=== PATIENT | female | born 1960 | race Caucasian/White ===

== ENCOUNTER 2023-10-10 12:16 | Emergency (ER) | payer BC, SELFPAY ==
[2023-10-10 12:19] VITALS: BP 108/83
[2023-10-10 12:51] LABS: % Basophils 0.6 % (0-2); % Eosinophils 0.3 % (0-6); % Immature Granulocytes 0.3 % (0-0.5); % Lymphocytes 15.9 % (20.5-51.1); % Monocytes 3.7 % (1.7-9.3); % Neutrophils 79.2 % (42.2-75.2); Absolute Lymphocytes 0.6 10^3/uL (1.2-3.4); Absolute Monocytes 0.1 10^3/uL (0.1-0.6); Absolute Neutrophils 2.8 10^3/uL (1.4-6.5); Hematocrit 23.2 % (37.0-47.0); Hemoglobin 7.4 g/dL (12.0-16.0); Mean Corp Hgb Conc. 31.9 g/dL (33.0-37.0); Mean Corpuscular Hgb 27.2 pg (27.0-31.0); Mean Corpuscular Volume 85.3 fL (81.0-99.0); Nucleated Red Blood Cells % 0 %; Red Blood Cell Count 2.72 10^6/uL (4.20-5.40); Red Cell Dist. Width 18.2 % (11.5-14.5); White Blood Cell Count 3.5 10^3/uL (4.8-10.8)
[2023-10-10 12:57] LABS: INR 1.26; PT 15.6 Sec (11.4-14.6)
[2023-10-10 12:58] LABS: APTT 30.9 Sec (23.4-35.0)
[2023-10-10 13:10] LABS: Platelet Count 50 10^3/uL (130-400)
[2023-10-10 13:14] LABS: ALT (SGPT) 13 U/L (0-35); AST (SGOT) 28 U/L (14-36); Albumin 2.8 g/dl (3.5-5.0); Alkaline Phosphatase 77 U/L (38-126); Blood Urea Nitrogen 15 mg/dl (7-17); Calcium 8.8 mg/dl (8.4-10.2); Carbon Dioxide 21 mmol/L (22-30); Chloride 104 mmol/L (98-107); Glucose 120 mg/dl (70-99); Potassium 3.9 mmol/L (3.5-5.1); Sodium 130 mmol/L (135-145); Total Bilirubin 1.4 mg/dl (0.2-1.3); Total Protein 6.2 g/dl (6.3-8.2); eGFR > 60.00
--- NOTE | 2023-10-10 15:34 | ED.GENMED ---
History of Present Illness
General
Chief Complaint: Abnormal Lab Value
Time Seen by Provider: 10/10/23 15:08
Travel History
Have you had any contact with someone who has COVID-19?: No
Do you have any symptoms of coronavirus? Fever > 100 degrees, chills, cough, shortness of breath, sore throat, loss of taste or smell, muscle aches, or headache?: No
History of Present Illness
History of Present Illness:
62-year-old female with history of hemochromatosis presents to the department for worsening fatigue, exertional dyspnea, and lethargy ongoing for the past several days. Patient has underlying hemochromatosis and follows outpatient with hematology.
States she has had the symptoms progressively worsening for about 7 months, has not required a blood transfusion as her hemoglobin is typically not dropped below 8.0 during this time. Denies any recent fevers or chills.
Review of Systems
Review of Systems
Allergies reviewed?: Yes
All Other Systems: ROS reviewed and negative except as documented in HPI and ROS
Phy Exam
Physical Exam
Physical Exam:
GEN: Generally pale, overall in no immediate distress
HEENT: Oral mucosa moist, no scleral icterus
Cardiac: Regular rate and rhythm, 3/6 systolic murmur
Lung: No respiratory distress, no tachypnea
MSK: No gross deformity or injuries
Skin: Good color, no pallor or jaundice, no rashes
Neuro: AO x3, moves all extremities freely
Psych: Calm, cooperative
Course
Orders/Labs/Results
Orders:
Orders
10/10/23 12:28
Type+Screen Urgent
Complete Blood Count/With Diff Urgent
Comprehensive Metabolic Panel Urgent
Ferritin Urgent
Comment: ADD ON
Iron Urgent
Comment: ADD ON
PT/INR [Prothrombin Time] Urgent
PTT Urgent
Total Iron Binding Urgent
Comment: ADD ON
10/10/23 15:35
Add On- LAB Urgent
Tests Added?: iron, TIBC, ferritin
10/10/23 16:16
Blood Bank Products [* Blood Bank Products] Urgent
Blood Bank Products: *Packed RBC Leuko(PRBC's)
Quantity: 1
Transfuse Today: Yes
Reason: Anemia
Abnormal Lab Results
10/10/23
12:28
WBC 3.5 L 10^3/uL
(4.8-10.8)
RBC 2.72 L 10^6/uL
(4.20-5.40)
Hgb 7.4 L g/dL
(12.0-16.0)
Hct 23.2 L %
(37.0-47.0)
MCHC 31.9 L g/dL
(33.0-37.0)
RDW 18.2 H %
(11.5-14.5)
Plt Count 50 L 10^3/uL
(130-400)
MPV 11.0 H fL
(7.4-10.4)
Absolute Lymphs (auto) 0.6 L 10^3/uL
(1.2-3.4)
Neutrophils % 79.2 H %
(42.2-75.2)
Lymphocytes % 15.9 L %
(20.5-51.1)
PT 15.6 H Sec
(11.4-14.6)
Sodium 130 L mmol/L
(135-145)
Carbon Dioxide 21 L mmol/L
(22-30)
Glucose 120 H mg/dl
(70-99)
Iron 31 L ug/dl
(37-170)
TIBC 223 L ug/dl
(265-497)
% Saturation 13 L %
(20-50)
Ferritin 394.0 H ng/ml
(11.1-264.0)
Total Bilirubin 1.4 H mg/dl
(0.2-1.3)
Total Protein 6.2 L g/dl
(6.3-8.2)
Albumin 2.8 L g/dl
(3.5-5.0)
Crossmatch IS Only See Detail
10/10/23 12:28
10/10/23 12:28
Vital Signs
Initial and Last Documented VS:
Initial Vital Signs
Temp Pulse Resp BP Pulse Ox
98.3 F 90 20 108/83 99
10/10/23 12:19 10/10/23 12:19 10/10/23 12:19 10/10/23 12:19 10/10/23 12:19
Last Documented Vital Signs
Temp Pulse Resp BP Pulse Ox
98.6 F 84 18 102/59 92
10/10/23 20:03 10/10/23 20:03 10/10/23 20:03 10/10/23 20:03 10/10/23 20:03
MDM/Problems Addressed
MDM/Problems Addressed:
62-year-old female presenting with symptoms of low hemoglobin including dyspnea on exertion and excessive fatigue. She has no evidence for active bleeding. Her hemoglobin 7 quite stable for the past 6 months according to the patient based on her
outpatient labs, 2 days ago hemoglobin as an outpatient was 7.0, today 7.4. She was given 1 unit of packed red blood cells, cannot discount the potential that her systolic murmur may be somewhat contributory to her exertional symptoms. I
recommended she follow-up with her defensive secondary coach to [place] to discuss any potential further workup of valvular disorder, she has a follow-up scheduled with hematology and oncology in 2 weeks to discuss further workup of her hemochromatosis.
Overall clinically stable, tolerated blood transfusion quite well
*Critical Care Note
Total Time (30-74mins, 75-104mins- exclusive of procedures): Not Applicable
ED Attending Note
-
Portions of this chart may have been created with voice recognition software.� Occasional wrong word or��sound alike� substitutions may have occurred due to the inherent limitations of voice recognition software.
Discharge Plan
Departure
Patient Disposition: Home (Routine Discharge)
Date of Disposition: 10/10/23
Time of Disposition: 20:08
Patient with high blood pressure during this ER visit?: No
Discharge Problem:
Iron deficiency anemia
Instructions: Anemia, Possibly From Low Iron, Adult ED
Referrals:
Kennedi Jackson MD [Active] -
Staci Gasca CRNP [Family Provider] -
Activity Restrictions/Additional Instructions:
Have your hemoglobin rechecked in approximately 2 to 3 days by your primary care physician or your oncologist
Interventions
Interventions:
*Risk Screen - Suicide Last Done: 10/10/23 14:14
*General Assessment Last Done: 10/10/23 14:14
*Neglect/Abuse Screening Last Done: 10/10/23 14:14
ED- Fall Risk Assessment Last Done: 10/10/23 14:14
*ED COVID-19 Vaccine History Last Done: 10/10/23 12:19
*Nursing Disposition Last Done: 10/10/23 20:27
Discharge Date and Time
Discharge Date/Time: 10/10/23 20:37
Print Language: MALAGASY
[2023-10-10 16:15] LABS: Iron 31 ug/dl (37-170)
[2023-10-10 16:25] LABS: Percent Saturation 13 % (20-50); Total Iron Binding Capacity 223 ug/dl (265-497)
[2023-10-10 17:46] VITALS: BP 106/54
[2023-10-10 18:05] VITALS: BP 95/55
[2023-10-10 19:00] VITALS: BP 102/52
[2023-10-10 20:00] VITALS: BP 102/59
[2023-10-10 20:03] VITALS: BP 102/59
== END 2023-10-10 20:37 | disposition home or self-care (01) ==
LOC: EMR 12:16
PROVIDERS: Emergency Medicine; EMERGENCY PHYSICIAN Emergency Medicine; FAMILY PHYSICIAN Nurse Practitioner Family
DX: D50.9 Iron deficiency anemia, unspecified (principal)
CPT/HCPCS: 99285; 80053; 82728; 83540; 83550; 85025; 85610; 85730; 86850; 86900; 86901; 86920; P9016

== ENCOUNTER 2023-11-16 16:47 | Inpatient (IN) | payer BC, SELFPAY ==
[2023-11-16 16:53] VITALS: BMI 21.5
[2023-11-16 16:57] VITALS: BP 126/70
--- NOTE | 2023-11-16 17:00 | PTCARENOTE ---
pt admitted as transfer from [facility]. admitted to room 2249. pt AAOX3. denies pain. ambulated from stretcher to bed. weight and vitals obtained. SR on telemetry heart rate in 80s. +murmur. +1 pitting edema in lower extremities. 96% on 2L nasal
cannula. pt reports sob with minimal exertion. lung sounds diminished, fine crackles in bilateral bases. hypoactive bowel sounds, poor appetite. voiding in bathroom. PA at bedside to examine. med list updated. see worklist for full nursing
assessment and interventions.
--- NOTE | 2023-11-16 17:55 | HPS.HSE ---
Addendum entered and electronically signed by Kaushik Waggoner MD 11/17/23 13:03:
I saw and examined the patient.
The FILAMENT CUTTER's note was reviewed and I agree with the note.
Comment:
I met with Mrs. Finney at the bedside. We briefly reviewed her TTE and the plan of care. I suspect she will require AVR/MVR (with her baseline anemia, I would favor biological prosthesis). She is getting her R/LHC tomorrow followed by RONY this week.
Will plan to optimize her with blood products prior to surgery and have some on standby. Tentative surgery date is Thursday with me.
Original Note:
Family Physician
-
Family Physician: WILNER Harding
Chief Complaint
-
fatigue/exertional dyspnea
History of Present Illness
Isaura Finney is a 63-year-old opalf-[id number], female with hypertension, hyperlipidemia, hemochromatosis, mitral prolapse (f/b Dr. Ruff) and AV john reentrant tachycardia who has been admitted to [facility] on
11/09/2023 with acute worsening of exertional dyspnea and fatigue. Patient states symptoms have been present since January 2023 and has been following with outpatient gastroenterology with workup inclusive of colonoscopy in March upper GI in June
of this year and capsule endoscopy in July of this year, with all negative results. Patient denies rectal bleeding, melena, hematochezia. Patient received 1 unit of packed red blood cells on 10/10/23 for hemoglobin of 7.4. Hemoglobin on
admission to [facility] was 6.7 and patient was hypotensive (90/62). Patient received a total of 4 units of packed red blood cells. White blood cell count was normal at 6.3 and patient was afebrile. CTA of chest on 11/08 reported no
evidence for pulmonary emboli. Thrombocytopenia with platelet count of 32,000 was followed up with head CT which was negative for infarct or hemorrhage. Initial troponin of 92 was consistent with demand ischemia. Initial blood cultures grew
gram-positive cocci in chains and patient was started on vancomycin 1.5G intravenous daily. A TTE was performed on 11/09 and reported EF of 65% with severe concentric LVH. Normal RV size and function. Dilated left atrium with myxomatous mitral
valve with posterior mitral valve leaflet prolapse and ruptured chordae of the anterior and posterior mitral valve leaflets. The anterior mitral valve leaflet was flail with reported evidence of vegetation. Moderate mitral regurgitation and aortic
insufficiency was noted. Ascending root measured 3.8 cm, sinotubular junction measured 3.1 cm, and ascending aorta measured 3.73 cm. On 11/10, patient underwent a left thoracentesis for 350 cc of fluid. Patient recounts a 30 pound weight loss since
last fall as she has been feeling poorly and has little appetite. Last dental examination and cleaning was in June 2023. Patient currently sitting in bed, comfortable and able to converse without dyspnea. Of note, patient did not receive
vancomycin dose on 11/15 due to random Vanco level of 28.4.
Medical History
Past Medical History
Past Medical History: Reports Arrhythmia (AVNRT s/p ablation), GERD, HTN, Hypercholesterolemia, Valvular Disease (mitral valve prolapse), Psychiatric (Anxiety) and Other (Normocytic anemia, thrombocytopenia, lactose (not gluten as prior documented
from OSH) intolerance)
Past Surgical History: Reports Other (Bilateral breast implant and subsequent removal, tubal ligation)
Social History
Tobacco: Non-smoker
Alcohol: Occasional
Drug: None
Personal:
Living: With Family
Employment: Retired
Family History
Family History: Not pertinent
Allergies / Home Medications
Allergies reflects when Allergies were last updated in [facility].
Home Medications with original date entered in [facility]
Allergy/Medication List:
see list
Review of Systems
-
Constitutional: Reports Weight Loss (30 pounds since 04/30)
EENT: Reports No Symptoms
Respiratory: Reports See HPI
Cardiac: Reports No Symptoms
Abdomen/GI: Reports Anorexia
: Reports No Symptoms
Skin: Reports No Symptoms
Neurological: Reports No Symptoms
Endocrine: Reports No Symptoms
Hematologic/Lymphatic: Reports See HPI
Psych: Reports No Symptoms
Physical Exam
Vital Signs
Vital Signs
Temp Pulse Resp BP Pulse Ox
98.4 F 84 18 126/70 96
11/16/23 17:02 11/16/23 17:15 11/16/23 17:02 11/16/23 16:57 11/16/23 17:36
Physical Exam
General: Well Developed, Well Nourished, Comfortable and Conversant
HEENT: NormoCephalic, Anicteric, Moist mucous membranes, Good Dentition, PERRLA, Sorgho Conjunctivae, No Ptosis, Ears Appear Normal, Neck Nontender and Oxygen (2L NC w/sat 96%)
Respiratory: Clear
Cardiac: S1/S2, Regular Rhythm and Murmur (IV/ harsh systolic murmur RSB 3rd ICS and LSB 5th ICS to axillae)
Breast: Deferred by me
GI: Soft, Non Tender, Non Distended, Normal Bowel Sounds and No Hepatosplenomegaly
Rectal: Deferred by Provider
Genito-urinary: Deferred by me
Musculoskeletal: No Clubbing, No Cyanosis, Edema, Left Lower Extremity (+1) and Edema, Right Lower Extremity (+1)
Skin: Warm and Dry
Neuro: AO x 3, No Motor Deficits, Nonfocal/grossly intact and No Sensory Deficits
Hematologic/Lymphatic: No Lymphadenopathy
Psych: Calm and Intact Judgment/Insight
Laboratory Results
-
11/15 labs from [facility] reviewed
WBC: 5.9; Hb 8.9; Plt 32
BMP: Na+ 136; K+3.6; Cl 105; CO2 23; BUN 11; Creat 0.76; Glucose 87
Vanc random-28.4
ALT-7
T. Bili 1.8
Data Reviewed
-
Diagnostic Radiology: Report Reviewed by me and Discussed with Physician
CT Scan: Report Reviewed by me and Discussed with Physician
Medical Tests (Nuc Med, Echo, EKG etc): Report Reviewed by me and Discussed with Physician
Lab Data: Labs Reviewed by me and Discussed with Physician
Impression/Plan
-
IMPRESSION: 63-year-old female with gram-positive cocci bacteremia and mitral valve endocarditis with anemia and thrombocytopenia
PLAN:
Repeat blood cultures in the morning
Trend hemoglobin (currently 8.9) and platelet count (currently 32 K)
Timing for transesophageal echocardiogram and cardiac catheterization to be determined
Consults to [facility] cardiology and infectious disease
[2023-11-16] MEDS: ADVAIR HFA 230/21 MCG INHALER 2 PUFF INH (19:06)
[2023-11-16 19:36] VITALS: BP 124/53
[2023-11-16] MEDS: LIPITOR PO (19:40)
[2023-11-16] MEDS: TYLENOL PO (21:15)
[2023-11-16 22:39] VITALS: BP 128/72
[2023-11-16 23:50] VITALS: BP 121/63
[2023-11-17] MEDS: TYLENOL PO ×7 (01:09→23:06)
[2023-11-17 04:51] VITALS: BP 122/67
[2023-11-17 05:24] LABS: % Basophils 0.3 % (0-2); % Immature Granulocytes 0.3 % (0-0.5); % Lymphocytes 9.8 % (20.5-51.1); % Monocytes 3.4 % (1.7-9.3); % Neutrophils 86.2 % (42.2-75.2); Absolute Lymphocytes 0.6 10^3/uL (1.2-3.4); Absolute Monocytes 0.2 10^3/uL (0.1-0.6); Absolute Neutrophils 5.6 10^3/uL (1.4-6.5); Hematocrit 22.9 % (37.0-47.0); Hemoglobin 7.5 g/dL (12.0-16.0); Mean Corp Hgb Conc. 32.8 g/dL (33.0-37.0); Mean Corpuscular Hgb 29.6 pg (27.0-31.0); Mean Corpuscular Volume 90.5 fL (81.0-99.0); Mean Platelet Volume 10.8 fL (7.4-10.4); Nucleated Red Blood Cells % 0 %; Platelet Count 31 10^3/uL (130-400); Red Blood Cell Count 2.53 10^6/uL (4.20-5.40); Red Cell Dist. Width 16.3 % (11.5-14.5); White Blood Cell Count 6.5 10^3/uL (4.8-10.8)
[2023-11-17 05:29] LABS: APTT 32.4 Sec (23.4-35.0); INR 1.24; PT 15.5 Sec (11.4-14.6)
[2023-11-17 05:31] LABS: Vancomycin Random 15.2 ug/ml
[2023-11-17 05:33] LABS: ALT (SGPT) 18 U/L (0-35); AST (SGOT) 42 U/L (14-36); Albumin 2.3 g/dl (3.5-5.0); Alkaline Phosphatase 81 U/L (38-126); Blood Urea Nitrogen 13 mg/dl (7-17); Calcium 8.4 mg/dl (8.4-10.2); Carbon Dioxide 25 mmol/L (22-30); Chloride 107 mmol/L (98-107); Estimated Creatinine Clearance 64 ml/min; Glucose 92 mg/dl (70-99); Magnesium 1.7 mg/dl (1.6-2.3); Potassium 3.7 mmol/L (3.5-5.1); Sodium 135 mmol/L (135-145); Total Bilirubin 1.8 mg/dl (0.2-1.3); Total Protein 5.7 g/dl (6.3-8.2); eGFR > 60.00
[2023-11-17 06:00] VITALS: BMI 21.2
[2023-11-17 07:11] VITALS: BP 114/65
[2023-11-17 07:15] LABS: Urine Albumin Trace (Neg - Trace); Urine Bilirubin Negative (Negative); Urine Character Clear (Clear); Urine Color Yellow; Urine Glucose Negative (Negative); Urine Ketone Negative (Negative); Urine Leukocyte Trace (Negative); Urine Nitrite Negative (Negative); Urine Occult Blood 4+ (Negative); Urine Urobilinogen Negative (Neg - 1+); Urine pH 6.5 (5.0-9.0)
[2023-11-17 07:35] LABS: Urine Squamous Cell 0-2 /LPF (Few)
[2023-11-17 07:39] LABS: Urine Bacteria Few (Negative); Urine Red Blood Cell 30-40 /HPF (0-2)
--- NOTE | 2023-11-17 07:45 | CON.CAR ---
Addendum entered and electronically signed by Mateo Krishna MD 11/17/23 13:25:
I saw and examined the patient.
The FENDER FINISHER or PA's note was reviewed and I agree with the note.
Comment: General: Well developed, well nourished in NAD.
Neck: Supple, no JVD, HJR, carotids +2 B/L, no bruits bilaterally.
Heart: Non displaced PMI, RRR, 2/6 apical systolic murmur, No S3, S4, no rubs.
Lungs: Clear to auscultation bilaterally, no wheeze, rhonchi, rubs bilaterally,
normal expiratory phase.
Extremities: No clubbing, cyanosis or edema bilaterally.
Neuro: Grossly nonfocal, awake, alert and oriented x3.
Isaura has a history of hemochromatosis, AVNRT status post ablation 2000, hypertension, hyper anemia, thrombocytopenia with extensive workup by oncology including bone marrow biopsy. She was admitted to [facility] with shortness of breath and
palpitations. Hemoglobin was 6.7 and platelets of 31,000. Cardiology was consulted for elevated troponin and echocardiogram revealed flail mitral valve leaflet and ruptured cord. She was transferred to [facility] to get mitral valve surgery. She
denies chest pain or shortness of breath at the present time.
Will plan on cardiac catheterization with Dr. Tristan on 11/17. Will plan on RONY on 11/18. Tentative plan for OR for mitral valve surgery on 11/[address] surgery input. Discussed with CT surgery, Dr. Tristan.
Original Note:
Consultation
Consultation Request
Date/Time Consultation Requested: 11/16/23 at 1740
Date/Time Consultation Performed: 11/17/23 at 0730
Requesting Provider: Dr. Waggoner
Performing Provider: Dr. Krishna
Reason for Consultation: Transfer from [facility] for mitral valve endocarditis
Medical History
-
History of Present Illness:
Patient was transferred from [facility] to 11/16/[address] team in the setting of suspected mitral valve endocarditis. Patient reports that she started with fatigue and INGRAM in 04/2023. Patient was found to be anemic and had GI
work-up including upper and lower endoscopy plus capsule endoscopy that were all unremarkable at [facility]. Patient then saw rheumatology and Heme/Onc for evaluations. Her rheumatoid factor and LICO labs were unremarkable and no definitive rheumatology
diagnosis was made. Patient saw Dr. Jackson with Heme/Onc and eventually had a bone marrow biopsy at [facility] 06/2023 that showed slight erythroid dysmaturation without evidence of clonal process, left shift or blasts. Overall BM biopsy suggested a
reactive process. Patient was then [facility] for anemia and was transfused, but referred back to her outpatient investigations manager for murmur. Patient went to [facility] on 11/09/23 for resting SOB and palpitations. In [facility] ER she was hypotensive
and Hgb was 6.[address] was negative for PE. Cardiology was consulted for elevated Troponin and an echo was checked that revealed flail MV leaflet and ruptured chords. There was consideration for cath and RONY at [facility], but due to
thrombocytopenia cases deferred. Blood cultures drawn 11/11/23 were positive for gram positive cocci in chains and repeat blood cultures were also positive 11/13/23. ID was consulted, but no consult seen in [facility] transfer records. Patient was transferred
to yesterday for evaluation by our CT surgical team and cardiology now consulted to follow along. Patient is adopted and does not know anything of her family medical history. Records at [facility] indicated h/o substance abuse, but patient says there is
no h/o drug use whatsoever.
PMH:
Anemia
h/o AVNRT, s/p ablation at 2000
Hemochromatosis
h/o HTN
Hyperlipidemia
Past Medical History
Past Medical History: Other (in HPI)
Past Surgical History: Gynecological (tubal ligation)
Social History
Tobacco: Non-Smoker
Alcohol: None
Drug: None (No h/o IV drug use)
Personal:
Living: With Family
Family History
Family History: Adopted
Allergies / Home Medications
Allergy/AdvReac Type Severity Reaction Status Date / Time
erythromycin base Allergy stomach Verified 11/16/23 18:26
cramping
lorazepam [From Ativan] Allergy hallucinati Verified 11/16/23 18:26
ons
oxycodone [From Percocet] Allergy Vomiting Verified 11/16/23 18:26
prochlorperazine Allergy wanted to Verified 11/16/23 18:26
[From Compazine] crawl out
of my skin
�Medication �Instructions �Recorded �Confirmed �Type
atenolol 25 mg tablet 25 mg PO DAILY Heart 11/16/23 11/16/23 History
Disease/Condition
atorvastatin 40 mg tablet 40 mg PO DAILY High Cholesterol 11/16/23 11/16/23 History
famotidine 40 mg tablet (Pepcid) 40 mg PO HS Gastrointestinal Issue 11/16/23 11/16/23 History
fluoxetine 20 mg capsule (Prozac) 20 mg PO DAILY Mental 11/16/23 11/16/23 History
Health/Anxiety
fluticasone 250 mcg-salmeterol 50 1 inh inhalation BID 11/16/23 11/16/23 History
mcg/dose blistr powdr for Lung/Breathing Issues
inhalation (Advair Diskus)
Review of Systems
-
History Source: Patient
All other systems: Negative unless noted
Physical Exam
Vital Signs
Temp Pulse Resp BP Pulse Ox
97.8 F 99 20 122/67 97
11/17/23 07:18 11/17/23 06:30 11/17/23 07:18 11/17/23 04:51 11/17/23 07:18
GEN: NAD. AAOx3
HEENT: EOMI, MMM
LUNGS: CTA B/L, no wheezes or rales
CV: Reg, S1/S2, 4/6 systolic murmur RSB
ABD: soft, BS+, NT, ND
EXT: No clubbing, cyanosis, lesions or edema B/L
NEURO: Gross non-focal
SKIN: Warm, dry and pink. No rash
Lab Results
11/17/23 04:53
11/17/23 04:53
Impression / Plan
-
PCP: Dr. Coleen Anderson
Cardiology: Dr. Ruff
Heme/Onc: Dr. Jackson
GI: Dr. Mcclendon at [facility]
Impression:
Transferred to for evaluation for mitral valve surgery 11/16/23
Admitted to [facility] with resting SOB symptoms, then new bacteremia and concern for mitral valve endocarditis 11/09/23
Suspected mitral valve endocarditis
Bacteremia, gram positive cocci in chains at [facility] 11/11/23
Anemia and thrombocytopenia, possibly hemolytic anemia in the setting of endocarditis
Elevated Troponin at [facility] managed as a nonischemic myocardial injury Troponin elevation
B/L pleural effusions
s/p thoracentesis at [facility] 11/11/23
h/o AVNRT, s/p ablation at 2000
Hemochromatosis
h/o HTN
Hyperlipidemia
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
least moderate, moderate aortic insufficiency with dilated aorta
Plan:
-Patient was transferred from [facility] to 11/16/[address] team in the setting of suspected mitral valve endocarditis. Patient reports that she started with fatigue and INGRAM in 04/2023. Patient was found to be anemic and had GI
work-up including upper and lower endoscopy plus capsule endoscopy that were all unremarkable at [facility]. Patient then saw rheumatology and Heme/Onc for evaluations. Her rheumatoid factor and LICO labs were unremarkable and no definitive rheumatology
diagnosis was made. Patient saw Dr. Jackson with Heme/Onc and eventually had a bone marrow biopsy at [facility] 06/2023 that showed slight erythroid dysmaturation without evidence of clonal process, left shift or blasts. Overall BM biopsy suggested a
reactive process. Patient was then seen in [facility] 10/10/[facility] for anemia and was transfused, but referred back to her outpatient investigations manager for murmur. Patient went to [facility] on 11/09/23 for resting SOB and palpitations. In [facility] ER she was hypotensive
and Hgb was 6.[address] was negative for PE. Cardiology was consulted for elevated Troponin and an echo was checked that revealed flail MV leaflet and ruptured chords. There was consideration for cath and RONY at [facility], but due to
thrombocytopenia cases deferred. Blood cultures drawn 11/11/23 were positive for gram positive cocci in chains and repeat blood cultures were also positive 11/13/23. ID was consulted, but no consult seen in [facility] transfer records. Patient was transferred
to yesterday for evaluation by our CT surgical team and cardiology now consulted to follow along. Patient is adopted and does not know anything of her family medical history. Records at [facility] indicated h/o substance abuse, but patient says there is
no h/o drug use whatsoever.
-Talked with patient at length to clarify history from her [facility] chart. Also talked with cardiology team at [facility] and plan for now is cath 11/18/23.
-Timing of RONY to be determined, but could be done on , 11/19/23.
-ID reportedly saw patient at [facility], but I do not have any of their notes. Vancomycin has been continued at . Also do not have final culture data beyond 'gram positive cocci in chains' despite blood cultures being drawn as far back as 11/11/23,
cultures apparently sent to [facility].
-Troponin T at [facility] was 92 and was managed as nonischemic myocardial injury Troponin elevation, but will proceed with cath as part of surgical evaluation.
-B/L pleural effusions and thoracentesis at [facility], no culture data sent.
-Check pro-BNP. There was consideration for possible acute HF at [facility] in the hospitalist note, but nothing noted in cardiology notes. Patient was not taking a diuretic prior to admission.
-ECG reviewed by me shows SR without ischemic changes, QTc 492. Recheck ECG in AM
-93 minutes spent reviewing records, talking with cardiology at [facility] and composing chart
--- NOTE | 2023-11-17 08:03 | PHA.VAN.IN ---
Assessment
- Assessment
Renal Function: Appears similar to baseline
Contacted [facility] inpatient pharmacy and received the following information about vancomycin regimen:
11/10 - patient initiated on Vanc 750mg Q12H
11/12 - patient had random level of 23 and using bayesian program, was adjusted to 1250mg Q24H
11/13 - patient was adjusted to Vanc 1500mg Q24H
11/15 - random level of 28.4 (drawn 11/15 08:09), dosing held
Half-life between level of 28.4 and level of 15.2 today = 23 H
Plan
- Plan
Maintenance Regimen: Continue dosing by level for now - give 1000mg x1 today
Monitorin/12 06
Pharmacokinetics Vancomycin I
- -
Patient Age: 63
Patient Sex: Female
Vancomycin Day #: 7 (continued from outside hospital)
Indication: Endocarditis
Requesting Provider: Nitesh Calderon
Pertinent Antimicrobial Allergies:
erythromycin - stomach cramping
Height / Weight:
Height 5 ft 2 in
Actual Weight 52.5 kg
- Vital Signs / Lab Results
Temp Pulse Resp BP Pulse Ox
97.8 F 99 20 122/67 97
11/17/23 07:18 11/17/23 06:30 11/17/23 07:18 11/17/23 04:51 11/17/23 07:18
Lab Results - Hematology
11/17/23
04:53
WBC 6.5
Lab Results - Chemistry
11/17/23
04:53
BUN 13
Creatinine 0.7
Estimated Creat Clear 64
Albumin 2.3 L
Lab Results - Urine
11/17/23
06:32
Urine Nitrite Negative
Ur Leukocyte Esterase Trace A
Urine WBC 3-5
Ur Squamous Epith Cells 0-2
Urine Bacteria Few A
[2023-11-17] MEDS: ADVAIR HFA 230/21 MCG INHALER INH ×2 (08:10→20:51)
[2023-11-17] MEDS: PROZAC 20 MG PO (08:31)
[2023-11-17 09:41] LABS: Glycohemoglobin (HgbA1c) 4.9 % (4.0-5.6)
[2023-11-17 10:16] LABS: Free T3 2.22 pg/ml (2.77-5.27); Total Thyroxine 7.91 ug/dl (5.5-11.0)
--- NOTE | 2023-11-17 11:14 | CON.ID ---
Consultation
-
Date/Time Consultation Requested: November 16, 2023 1745
Date/Time Consultation Performed: November 17, 2023 1115
Requesting Provider: WILNER Nino
Performing Provider: Dr. Amelia Bell
Reason for Consultation: Mitral valve endocarditis
Chief Complaint / Past History
Chief Complaint
SOB
History of Present Illness
History obtained from patient as well as review of outside medical records. I also communicated with MARLINE Jones at [facility]. She is a 63-year-old female with history of hemochromatosis, mitral valve prolapse who is transferred from [facility] yesterday for mitral valve endocarditis surgery evaluation. She reports she started feeling unwell approximately March/April 2023 with shortness of breath, fatigue, weakness, poor appetite. Patient was found to be anemic. GI workup
was negative. Eventually she also developed thrombocytopenia. She was referred to hematology oncology and underwent bone marrow biopsy which showed a reactive process. She was also evaluated by rheumatology. She has 30 pound unintentional weight
loss. She was admitted to [facility] on November 08 due to acute worsening shortness of breath at rest and palpitation. Her hemoglobin was 6.7, platelet 31, she was hypotensive and hypoxic. CAT scan showed bilateral pleural effusions. November 10
she underwent thoracentesis with negative culture. Several outside blood cultures positive for GPC patient has been on vancomycin. TTE showed mitral valve flail leaflet, ruptured chordae, vegetation, severe mitral regurgitation by report. RONY was
deferred due to severe thrombocytopenia. Patient reports no fevers outpatient. She did have intermittent rigors and chills. No history of IV drug use. She takes good care of her teeth. Last dental cleaning was in June 2023. Shortness of
breath test improved. Positive lower extremity edema. No nausea vomiting. No diarrhea.
Past History
Additional Past Medical History:
Mitral valve prolapse
Hypertension
Hemochromatosis
Dyslipidemia
History of AVNRT status post ablation 2000
IBS
Anxiety/depression
Tubal ligation
History of breast implant subsequently removed
Allergy History:
erythromycin base Allergy (Verified 11/16/23 18:26)
stomach cramping
lorazepam [From Ativan] Allergy (Verified 11/16/23 18:26)
hallucinations
oxycodone [From Percocet] Allergy (Verified 11/16/23 18:26)
Vomiting
prochlorperazine [From Compazine] Allergy (Verified 11/16/23 18:26)
wanted to crawl out of my skin
Medications Reviewed: Yes
Current Antibiotics:
Vancomycin
Social History
Tobacco: Non-Smoker
Alcohol: None
Drug: None
Personal:
Living: With Family
Family History
Family History: Adopted
Review of Systems
Review of Systems
General: Chills and Change in Appetite
HEENT: Negative Sinus Problems, Headache or Pharyngitis
Cardiovascular: Dyspnea and Edema
Respiratory: Dyspnea and Cough
Gasteroenterology: Other (No diarrhea); Negative Nausea or Vomiting
Genital / Urological: Negative Dysuria or Flank Pain
Endocrine: Weakness
Skin / Hair / Nails: Negative Rash
Neurological: Negative Headache or Dizziness
All systems: All other systems were reviewed and were negative
Vital Signs
Temp Pulse Resp BP Pulse Ox
97.8 F 99 20 122/67 97
11/17/23 07:18 11/17/23 06:30 11/17/23 07:18 11/17/23 04:51 11/17/23 07:18
Physical Exam
Physical Exam
Constitutional: No Acute Distress and Comfortable
Eyes: No Conjunctival Hemorrhage and Sclera Anicteric
Cardiovascular: Regular Rate, S1/S2 and Murmur
Pulmonary: Other (Decreased BS at bases)
Gastrointestinal: Non Tender, Non Distended and Normal Bowel Sounds
Genito-Urinary: Negative CVA Tenderness
Extremities: Edema (2+ bilateral lower extremities); Negative Erythema, Splinter Hemorrhage or Janeway Lesions
Musculoskeletal: Negative Joint Effusion or Spinal Tenderness
Neurological: AO x 3
Lab / Diagnostic Study Results
11/17/23 04:53
11/17/23 04:53
Abs Immat Gran (auto) 0.0 10^3/uL (0-0.05) 11/17/23 04:53
Absolute Neuts (auto) 5.6 10^3/uL (1.4-6.5) 11/17/23 04:53
Absolute Lymphs (auto) 0.6 10^3/uL (1.2-3.4) L 11/17/23 04:53
Absolute Monos (auto) 0.2 10^3/uL (0.1-0.6) 11/17/23 04:53
Absolute Basos (auto) 0.0 10^3/uL (0-0.2) 11/17/23 04:53
Immature Gran % 0.3 % (0-0.5) 11/17/23 04:53
Neutrophils % 86.2 % (42.2-75.2) H 11/17/23 04:53
Lymphocytes % 9.8 % (20.5-51.1) L 11/17/23 04:53
Monocytes % 3.4 % (1.7-9.3) 11/17/23 04:53
Eosinophils % 0.0 % (0-6) 11/17/23 04:53
Basophils % 0.3 % (0-2) 11/17/23 04:53
PT 15.5 Sec (11.4-14.6) H 11/17/23 04:53
INR 1.24 11/17/23 04:53
Urine WBC 3-5 /HPF (0-5) 11/17/23 06:32
Ur Squamous Epith Cells 0-2 /LPF (Few) 11/17/23 06:32
Microbiology Results
Micro:
11/17/23 04:53 Blood Culture - Pending
Blood/Venous
Assessment / Plan
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
# Abiotrophia defectiva bacteremia; 11/09 to 11/11 , 4 sets bcx's. 11/12 bcx's neg to date.
- Organism had been sent out to [facility] for susceptibility
# Acute anemia/thrombocytopenia due to MV IE
- Repeat bcx's in am
- Continue Vancomycin pending susceptibility.
- For eventual MV replacment.
[2023-11-17 11:15] VITALS: BP 126/58
[2023-11-17] MEDS: TENORMIN 25 MG PO (11:16)
[2023-11-17] MEDS: VANCOCIN 200 IV (11:17)
[2023-11-17] MEDS: KLOR-CON 40 MEQ PO (11:17)
--- NOTE | 2023-11-17 11:29 | CON.ONC ---
Impression
Impression
abiotrophia defectiva bacteremia with infective endocarditis
anemia
thrombocytopenia
Hemochromatosis, compound heterozygote
Plan
Plan
Anemia and thrombocytopenia are secondary to her infective endocarditis. She has had extensive hematologic workup including bone marrow biopsy over the past several months, which showed no underlying blood or bone marrow disorder other than known
hemochromatosis.
Management of infective endocarditis per CT surgery and infectious disease. Will transfuse blood and platelets as clinically indicated. Anticipate improvement in CBC once underlying infection improves.
Will check analysis panel, she may have concomitant valvular hemolysis, though treatment would not change.
Patient History
History of Present Illness
This is a 63yo female who I recently saw in the office for evaluation of progressive anemia. Extensive workup including bone marrow biopsy was nondiagnostic. She continued to have symptoms of worsening anemia, with chest discomfort and presented
to [place] last week. Evaluation included blood cultures, which were positive for gram-positive cocci (abiotrophia defectiva). Transthoracic echo on November 09 showed ejection fraction of 65% with severe concentric LVH. Left atrium is dilated with
myxomatous mitral valve with posterior mitral valve leaflet prolapse and ruptured chordae of the anterior and posterior mitral valve leaflets. The anterior mitral valve leaflet with flail with evidence of vegetation. Also noted was moderate mitral
regurgitation and aortic insufficiency. She was transferred to [place] for CT surgery evaluation. CBC today is noted for hemoglobin of 7.5 and platelet count of 31. White blood cell count of 6.5.This degree of anemia has been chronic, and
thrombocytopenia has been progressive, with platelet count of 39 on October 25. CMP is noted for total bilirubin of 1.8. Recent iron studies showed elevated ferritin with low saturation.
Past-Medical/Surgical History
Past medical history is noted for hypertension, asthma, depression, hyperlipidemia and anemia. She also has a history of hemochromatosis. Surgical history noted for tubal ligation, breast implants 1998 and implant removal in 2020 and cardiac
ablation in 2001.
Social history: She has never smoked tobacco, does not drink alcohol.
Family history: She is adopted
Patient Medication
�Medication �Instructions �Recorded �Confirmed �Last Taken �Type
atenolol 25 mg tablet 25 mg PO DAILY Heart 11/16/23 11/16/23 Unknown History
Disease/Condition
atorvastatin 40 mg tablet 40 mg PO DAILY High Cholesterol 11/16/23 11/16/23 11/16/23 History
famotidine 40 mg tablet (Pepcid) 40 mg PO HS Gastrointestinal Issue 11/16/23 11/16/23 Unknown History
fluoxetine 20 mg capsule (Prozac) 20 mg PO DAILY Mental 11/16/23 11/16/23 11/16/23 History
Health/Anxiety
fluticasone 250 mcg-salmeterol 50 1 inh inhalation BID 11/16/23 11/16/23 Unknown History
mcg/dose blistr powdr for Lung/Breathing Issues
inhalation (Advair Diskus)
Active Medications
Generic Name Dose Route Start Last Admin
Trade Name Freq PRN Reason Stop Dose Admin
Acetaminophen 650 mg 11/16/23 20:00 11/17/23 08:32
Acetaminophen 325 Mg Tablet PO 12/14/23 19:59 Not Given
Q4HWA BRITT
Atenolol 25 mg 11/17/23 10:00 11/17/23 11:16
Atenolol 25 Mg Tablet PO 12/15/23 09:59 25 mg
DAILY BRITT Administration
Atorvastatin Calcium 40 mg 11/16/23 18:00 11/16/23 19:40
Atorvastatin (Lipitor) 40 Mg Tablet PO 12/14/23 17:59 Not Given
QPM BRITT
Bisacodyl 10 mg 11/16/23 17:35
Bisacodyl 10 Mg Rectal Suppository RECTAL 12/14/23 17:34
[id number] PRN
constipation
Fluoxetine HCl 20 mg 11/17/23 08:00 11/17/23 08:31
Fluoxetine 20 Mg Capsule PO 12/15/23 07:59 20 mg
DAILY BRITT Administration
Vancomycin HCl 1 each/ Device 0 mls @ 0 mls/hr 11/17/23 10:00
IV
PER PROTOCOL BRITT
Protocol
As Directed
Polyethylene Glycol 17 grams 11/16/23 17:35
Polyethylene Glycol Powder 17 Grams Packet PO 12/14/23 17:34
DAILYPRN PRN
constipation
Fluticasone/Salmeterol 2 puff 11/16/23 20:00 11/17/23 08:10
Advair Hfa 230/21 Inhaler INH 12/14/23 19:59 Not Given
R BID BRITT
Protocol
Senna/Docusate Sodium 1 tablet 11/16/23 17:35
Docusate W/Senna (Aparna-Colace) Tablet PO 12/14/23 17:34
BIDPRN PRN
constipation
Sodium Chloride 0 flush 11/16/23 18:00
Sodium Chloride 0.9% (Flush) Syringe IV 12/14/23 17:59
PER PROTOCOL BRITT
Review of Systems
-
History Source: Patient
All Other Systems: Not reviewed unless documented
Physical Exam
-
General: Well Developed, Well Nourished, No Apparent Distress, Comfortable and Conversant
HEENT: Moist Mucous Membranes; Negative Jaundice
Musculoskeletal: No Clubbing, No Cyanosis and No Edema
Neurology: Non Focal and No Lateralizing Symptoms
Skin: Warm and Dry
Psych: Calm and Intact Judgement/Insight
Labs
Lab Results
WBC 6.5 10^3/uL (4.8-10.8) 11/17/23 04:53
RBC 2.53 10^6/uL (4.20-5.40) L 11/17/23 04:53
Hgb 7.5 g/dL (12.0-16.0) L 11/17/23 04:53
Hct 22.9 % (37.0-47.0) L 11/17/23 04:53
MCV 90.5 fL (81.0-99.0) 11/17/23 04:53
MCH 29.6 pg (27.0-31.0) 11/17/23 04:53
MCHC 32.8 g/dL (33.0-37.0) L 11/17/23 04:53
RDW 16.3 % (11.5-14.5) H 11/17/23 04:53
Plt Count 31 10^3/uL (130-400) L 11/17/23 04:53
MPV 10.8 fL (7.4-10.4) H 11/17/23 04:53
Abs Immat Gran (auto) 0.0 10^3/uL (0-0.05) 11/17/23 04:53
Absolute Neuts (auto) 5.6 10^3/uL (1.4-6.5) 11/17/23 04:53
Absolute Lymphs (auto) 0.6 10^3/uL (1.2-3.4) L 11/17/23 04:53
Absolute Monos (auto) 0.2 10^3/uL (0.1-0.6) 11/17/23 04:53
Absolute Eos (auto) 0.0 10^3/uL (0-0.7) 11/17/23 04:53
Absolute Basos (auto) 0.0 10^3/uL (0-0.2) 11/17/23 04:53
Immature Gran % 0.3 % (0-0.5) 11/17/23 04:53
Neutrophils % 86.2 % (42.2-75.2) H 11/17/23 04:53
Lymphocytes % 9.8 % (20.5-51.1) L 11/17/23 04:53
Monocytes % 3.4 % (1.7-9.3) 11/17/23 04:53
Eosinophils % 0.0 % (0-6) 11/17/23 04:53
Basophils % 0.3 % (0-2) 11/17/23 04:53
Creatinine 0.7 mg/dL (0.6-1.0) 11/17/23 04:53
Vital Signs
Vital Signs
Temp Pulse Resp BP Pulse Ox
97.8 F 92 20 126/58 97
11/17/23 07:18 11/17/23 11:16 11/17/23 07:18 11/17/23 11:16 11/17/23 07:18
[2023-11-17 12:18] LABS: NT-proBNP 10200 pg/ml
[2023-11-17 12:19] LABS: Hepatitis C Antibody Negative (Negative)
[2023-11-17] MEDS: LASIX 40 MG IV (13:13)
[2023-11-17 14:39] VITALS: BMI 21.2
--- NOTE | 2023-11-17 15:43 | CM ---
CM following for DC planning needs.
Met w/ patient, dtr. and granddtr. at bedside to complete initial assessment.
Pt. resides w/ spouse in a private, multi level home w/ 1 DASHA. Functionally, patient is indep. at baseline w/ ADLs, mobility without the use of any assisted device.
Pt. has Rx plan and uses [facility] in [place] for prescription needs.
Pt. anticipates CT Surg. at end of week.
Informed that I will be back later to review pre-op teaching.
Anticipate CT Surgery this week with DC to home w/ CT Transitional Care RN once medically stable.
CM to follow.
[2023-11-17 15:49] VITALS: BP 96/49
[2023-11-17] MEDS: LIPITOR 40 MG PO (17:49)
[2023-11-17 19:54] VITALS: BP 105/65
[2023-11-17 22:40] VITALS: BP 116/64
[2023-11-18] VITALS (30 sets, daily range): BP systolic 98–120; BP diastolic 53–73; BMI 20.9
--- NOTE | 2023-11-18 01:09 | W.PN.CT ---
Today's Communication / Plan
-
Plan:
-Cont. medical optimization/preop evaluation
-For R/L hearth cath today, 11/17 (will give 2 {5 pks} plts prior)
-H/h 6.8/20.4 will transfuse 2units today
-For eventual RONY prior to OR
-Blood transfusion as warranted
-F/u blood cultures
-Cont. abx per ID, currently on Vancomycin
-Appreciate consultants input
-Tentatively for MVR +/- AVR/ LAAE by Dr. Waggoner on Thursday, 11/19
Assessment / Plan
-
Assessment:
-MV endocarditis with severe MR (Abiotrophia defectiva bacteremia from blood cultures 11/09- 11/11; negative cultures to date)
-Anemia
-Thrombocytopenia
-LVEF 65%
-Hypertension
-Hemochromatosis
-Dyslipidemia
-History of AVNRT S/P ablation 2000
-GERD
-Osteopenia
-IBS
-Lactose intolerance
-Anxiety/depression
-B/L LE 2+ edema
-B/L pleural effusion S/P L thoracentesis 11/11/23 (cultures negative)
-S/P breast implant with subsequent removal (2020)
-S/P bone marrow biopsy (unrevealing)
-S/P Tubal ligation
Discussed patient care with: Cardiology, Nursing, Respiratory Therapy, Pharmacy and Care Team
Subjective
-
Date of Service: November 18, 2023
No issues overnight. Denies CP/SOB
Objective Data
-
PT 15.5 Sec (11.4-14.6) H 11/17/23 04:53
INR 1.24 11/17/23 04:53
APTT 32.4 Sec (23.4-35.0) 06/11/24 04:53
Vital Signs
Vital Signs
Temp Pulse Resp BP Pulse Ox
98.4 F 68 17 116/64 98
11/17/23 22:56 11/17/23 23:15 11/17/23 22:56 11/17/23 22:40 11/17/23 22:56
CT Intake/Output/Weight
11/17/23 11/17/23 11/18/23
06:59 18:59 06:59
Intake Total 1000 / 1000
Output Total 250 / 250 2250 / 2250
Balance -250 / -250 -1250 / -1250
SaO2: 98 (2L)
Physical Exam
-
General: Awake, Oriented and AOx3
Cardiovascular: Regular rate & rhythm and Murmur (4/6 systolic)
Respiratory: Rhonchi (at right base) and Decreased Breath Sounds
Sternum: Stable
Incision: Clean, Dry, Intact and Dressing Intact
Extremities: Edema +2
Data Reviewed
-
Lab Results: Results Reviewed
Medications: Active Meds Reviewed
Chest X-Ray: Report Reviewed and Image Reviewed
ECG: Report Reviewed and Image Reviewed
[2023-11-18] MEDS: TYLENOL PO ×5 (03:45→19:54)
--- NOTE | 2023-11-18 05:05 | PTCARENOTE ---
2 units platelets transfused as ordered. Vital signs stable. Pt ambulatory to bathroom as needed. Pt remains on 2 LO2 NC, tachypneic/ INGRAM. Dry cough. PT refusing Tylenol/ Robitussin as ordered. Pt kept NPO for scheduled cardiac cath this am. No
other changes in assessment noted at this time. Will continue to monitor.
[2023-11-18 06:00] LABS: Mean Corp Hgb Conc. 33.3 g/dL (33.0-37.0); Mean Corpuscular Hgb 30.4 pg (27.0-31.0); Mean Corpuscular Volume 91.1 fL (81.0-99.0); Mean Platelet Volume 10.5 fL (7.4-10.4); Red Blood Cell Count 2.24 10^6/uL (4.20-5.40); Red Cell Dist. Width 16.2 % (11.5-14.5); Reticulocyte Count 2.6 % (0.4-2.8); White Blood Cell Count 7.8 10^3/uL (4.8-10.8)
[2023-11-18 06:13] LABS: Hemoglobin 6.8 g/dL (12.0-16.0)
[2023-11-18 06:14] LABS: Hematocrit 20.4 % (37.0-47.0); Platelet Count 60 10^3/uL (130-400)
[2023-11-18 06:23] LABS: Vancomycin Random 16.7 ug/ml
[2023-11-18 06:24] LABS: Blood Urea Nitrogen 14 mg/dl (7-17); Calcium 8.1 mg/dl (8.4-10.2); Carbon Dioxide 28 mmol/L (22-30); Chloride 101 mmol/L (98-107); Estimated Creatinine Clearance 56 ml/min; Glucose 92 mg/dl (70-99); LDH 403 U/L (120-246); Magnesium 1.6 mg/dl (1.6-2.3); Potassium 3.8 mmol/L (3.5-5.1); Sodium 135 mmol/L (135-145); eGFR > 60.00
--- NOTE | 2023-11-18 06:29 | PTCARENOTE ---
AM lab work reviewed with Bernardo Cornelius cardiac PA. Order obtained for 2 units RBC's. Pt denies any complaints. Will continue to monitor.
[2023-11-18] MEDS: ADVAIR HFA 230/21 MCG INHALER INH ×2 (08:11→19:33)
--- NOTE | 2023-11-18 08:31 | PHA.VAN.FU ---
Vancomycin Assessment / Plan
- Assessment
Renal Function: Stable
WBC's are: WNL
In the past 24 hrs, patient has been: Afebrile
- Assessment - Therapeutic Drug Monitoring
Random Level: 16.7 - drawn ~18.5H after previous dose of 1000mg
- Dosing Plan
Dosing by Level: Re-dose today (Vanc 750mg - trial of reduced dosing)
- Monitoring Plan
Random Level: 11/18 06
- Follow Up
Pharmacy will continue to follow.
Vancomycin Follow UP
- -
Patient Age: 63
Patient Sex: Female
Vancomycin Day #: 8 (continued from outside hospital)
Indication: Endocarditis
Requesting Provider: Nitesh Calderon / Dr. Bell
Pertinent Antimicrobial Allergies:
erythromycin - stomach cramping
Height / Weight:
Height 5 ft 2 in
Actual Weight 51.9 kg
- Vital Signs / Lab Results
Temp Pulse Resp BP Pulse Ox
97.6 F 83 20 114/61 97
11/18/23 07:15 11/18/23 07:45 11/18/23 07:15 11/18/23 07:18 11/18/23 07:18
Lab Results - Hematology
11/17/23 11/18/23
04:53 05:46
WBC 6.5 7.8
Lab Results - Chemistry
11/17/23 11/18/23
04:53 05:46
BUN 13 14
Creatinine 0.7 0.8
Estimated Creat Clear 64 56
Albumin 2.3 L
Microbiology Results
11/17/23 04:53 Blood Culture - Preliminary
Blood/Venous No Growth in 24 hours- Final report to follow
Therapeutic Drug Monitoring
Random Vancomycin 16.7 ug/ml 11/18/23 05:46
--- NOTE | 2023-11-18 08:59 | ITS.CL.CATH ---
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
Cardiac Catheterization
Procedure Report:
RIGHT AND LEFT HEART CATHETERIZATION
Date of Procedure: November 18, 2023
Primary Care Physician: WILNER Cuba
Primary Skiagrapher: Dr. Cooper Daniels
Procedures performed:
1: Coronary angiography
2: Left ventricular hemodynamic assessment
3: Right heart catheterization
INDICATION: The patient is a 63-year-old woman who is referred for diagnostic right and left heart cath in preparation for double valve surgery in the setting of endocarditis complicated by pancytopenia. She received platelets overnight and is
currently being transfused with a unit of blood for hemoglobin this morning of 6.8 g/dL. She is unable to lay flat and the procedure was done with her on a wedge in the [employer] Worker.
ACCESS: The patient was prepped and draped in usual sterile fashion. A 5 [place] sheath was placed in the right radial artery using the Seldinger over the wire technique. A 5 [place] sheath was then placed in the right brachial vein using the same
technique.
HEMODYNAMIC FINDINGS (mmHg):
Resting
RA(a,v,m): 19, 17, 16
RV(s/d,EDP): 61/15, 18
PA(s/d/m): 61/30, 47
PCWP(a,v,m): 30, 58, 37
POST NTG
PA(s/d/m): 45/23, 34
PCWP(a,v,m): 29, 31, 27
LV(s/d,EDP): 125/12, 20
Ao(s/d,m): 125/72, 96
Oxygen Saturations (mg/dl):
PA: 57% on 4 L of oxygen by nasal cannula
LV: 91% on 4 L oxygen by nasal cannula
Cardiac Output/Index (l/min / l/min/m2):
Estimated Fifi Method: 4.6 / 3.0
VALVE HEMODYNAMICS:
No significant aortic or mitral valve stenosis.
ANGIOGRAPHIC FINDINGS:
Single-plane Left Ventriculography in CARPIO Projection: Not done.
Coronary Angiography:
Dominance: Right
Left Main: Large-caliber, widely patent.
Left Anterior Descending: The left anterior descending artery is a relatively large caliber vessel that is widely patent with only mild luminal irregularities. There is 1 major diagonal branch that also has mild ostial disease with normal distal
flow.
Left Circumflex: The left circumflex is a medium caliber nondominant system that gives rise to 1 major branching obtuse marginal branch that is widely patent with normal flow.
Right Coronary: The right coronary artery is a very large caliber dominant vessel that gives rise to a small caliber posterior descending artery and 2 very large caliber posterior left ventricular branches. There is catheter dampening with a 80%
smooth ostial coronary stenosis. The distal vessels are widely patent.
Fluoroscopy Time (min): 5.7
Radiation Dose (mGy): 271
DAP (Gy.cm2): 17
Closure device: None. A TR band was applied for hemostasis at the right wrist. The brachial vein groin sheath will be pulled with manual pressure for hemostasis.
Complications: None.
ASSESSMENT:
1: Single-vessel obstructive coronary artery disease with ostial right stenosis. The distal vessel is an excellent surgical target.
2: Moderate to severely elevated pulmonary pressures with a very large V wave that dramatically responds to intravenous nitroglycerin.
CONCLUSIONS and RECOMMENDATIONS:
1: Proceed with planned valvular surgery along with single-vessel bypass. Case discussed with Dr. Supa Waggoner.
Chase Tristan M.D.
Copy to: Staci DARBY
[2023-11-18] MEDS: VANCOCIN 150 IV (10:38)
[2023-11-18] MEDS: PROZAC 20 MG PO (11:02)
[2023-11-18] MEDS: TENORMIN 25 MG PO (11:02)
[2023-11-18] MEDS: BUMEX 50 IV (11:28)
--- NOTE | 2023-11-18 12:29 | CM ---
CM following for DC planning needs.
Met w/ patient at bedside. She is anticipating CT Surgery this week.
Reviewed pre and post op routines.
Cardiac Surgery booklet provided.
Discussed post op MD appointments, Cardiac Rehab and visit from CT Transitional Care RN.
Reviewed post op restrictions to include lifting, driving, flying and sternal precautions.
Plan for CT Surgery.
Goal for DC is for home w/ CT Transitional Care RN + ? IV infusion
CM to follow.
--- NOTE | 2023-11-18 13:46 | W.PN.ID1 ---
Date of Service
Date of Service: November 18, 2023
Today's Communication
Continue Vancomycin.
Assessment / Plan
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
# Abiotrophia defectiva bacteremia; 11/09 to 11/11 , 4 sets bcx's. 11/12 bcx's neg to date.
- Organism had been sent out to [facility] for susceptibility
# Acute anemia/thrombocytopenia due to MV IE
- Repeat bcx's neg to date
- Continue Vancomycin pending susceptibility.
- For eventual MV replacement.
#Additional Past Medical History:
Mitral valve prolapse
Hypertension
Hemochromatosis
Dyslipidemia
History of AVNRT status post ablation 2000
IBS
Anxiety/depression
Tubal ligation
History of breast implant subsequently removed
Chief Complaint
-: Other (endocarditis)
Subjective / Review of Systems
No new complaints.
Vital Signs / Physical Exam
Vital Signs
Vital Signs
Temp Pulse Resp BP Pulse Ox
98.0 F 63 16 100/55 97
11/18/23 12:15 11/18/23 13:15 11/18/23 12:15 11/18/23 13:00 11/18/23 13:15
Physical Exam
Constitutional: No Acute Distress
Cardiovascular: Regular Rate and S1/S2
Pulmonary: Clear (anteriorly)
Gastrointestinal: Soft, Non Tender and Non Distended
Extremities: Edema
Objective Data
Lab Data
Lab Results
11/18/23 05:46
PT 15.5 Sec (11.4-14.6) H 11/17/23 04:53
INR 1.24 11/17/23 04:53
APTT 32.4 Sec (23.4-35.0) 11/17/23 04:53
Estimated Creat Clear 56 ml/min 11/18/23 05:46
Total Bilirubin 1.8 mg/dl (0.2-1.3) H 11/17/23 04:53
AST 42 U/L (14-36) H 11/17/23 04:53
ALT 18 U/L (0-35) 11/17/23 04:53
Alkaline Phosphatase 81 U/L (38-126) 11/17/23 04:53
Most recent labs reviewed.
Micro Results:
11/18/23 05:46 Blood Culture - Pending
Blood/Venous
11/17/23 04:53 Blood Culture - Preliminary
Blood/Venous No Growth in 24 hours- Final report to follow
11/17/23 CXR: Mild to moderate CHF with small bilateral pleural effusions.
[2023-11-18] MEDS: LIPITOR 40 MG PO (16:00)
[2023-11-18 18:09] LABS: Hematocrit 32.4 % (37.0-47.0); Hemoglobin 11.3 g/dL (12.0-16.0); Mean Corp Hgb Conc. 34.9 g/dL (33.0-37.0); Mean Corpuscular Hgb 29.9 pg (27.0-31.0); Mean Corpuscular Volume 85.7 fL (81.0-99.0); Mean Platelet Volume 10.2 fL (7.4-10.4); Platelet Count 66 10^3/uL (130-400); Red Blood Cell Count 3.78 10^6/uL (4.20-5.40); Red Cell Dist. Width 15.9 % (11.5-14.5); White Blood Cell Count 6.9 10^3/uL (4.8-10.8)
[2023-11-19] VITALS (9 sets, daily range): BP systolic 90–114; BP diastolic 50–67; BMI 19.2
[2023-11-19] MEDS: TYLENOL PO ×6 (03:59→21:13)
[2023-11-19 05:02] LABS: Hematocrit 28.3 % (37.0-47.0); Hemoglobin 9.9 g/dL (12.0-16.0); Mean Corpuscular Hgb 29.6 pg (27.0-31.0); Mean Corpuscular Volume 84.7 fL (81.0-99.0); Mean Platelet Volume 9.8 fL (7.4-10.4); Platelet Count 65 10^3/uL (130-400); Red Blood Cell Count 3.34 10^6/uL (4.20-5.40); Red Cell Dist. Width 15.8 % (11.5-14.5); White Blood Cell Count 5.8 10^3/uL (4.8-10.8)
[2023-11-19 05:17] LABS: Vancomycin Random 18.7 ug/ml
[2023-11-19 05:30] LABS: Blood Urea Nitrogen 19 mg/dl (7-17); Calcium 8.7 mg/dl (8.4-10.2); Carbon Dioxide 34 mmol/L (22-30); Chloride 94 mmol/L (98-107); Estimated Creatinine Clearance 47 ml/min; Glucose 92 mg/dl (70-99); Potassium 3.2 mmol/L (3.5-5.1); Sodium 134 mmol/L (135-145); eGFR > 60.00
--- NOTE | 2023-11-19 06:30 | PTCARENOTE ---
Patient feeling better. No coughing or shortness of breath, oxygen at 2 liters NC. Trace pedal edema, lungs CTA. SR on telemetry, call garcia in reach
--- NOTE | 2023-11-19 07:22 | W.PN.CT ---
Today's Communication / Plan
-
-no issues overnight
-diuresed well with Bumex drip 11/17- UO 1200/5525 in 05/31 hrs. Wt is down 10 lbs today
-s/p 2 platelets and 2 pRBCs on 11/17. Hg 9.9 and platelets 65K today
-K 3.2 - gave 40 po KCL
-F/u blood cultures
-Cont. abx per ID, currently on Vancomycin
-Appreciate consultants input
-Tentatively for MVR +/- AVR/ LAAE by Dr. Waggoner on Thursday, 11/19
Assessment / Plan
-
Assessment:
-MV endocarditis with severe MR (Abiotrophia defectiva bacteremia from blood cultures 11/09- 11/11; negative cultures to date)
-Anemia
-Thrombocytopenia
-LVEF 65%
-Hypertension
-Hemochromatosis
-Dyslipidemia
-History of AVNRT S/P ablation 2000
-GERD
-Osteopenia
-IBS
-Lactose intolerance
-Anxiety/depression
-B/L LE 2+ edema
-B/L pleural effusion S/P L thoracentesis 11/11/23 (cultures negative)
-S/P breast implant with subsequent removal (2020)
-S/P bone marrow biopsy (unrevealing)
-S/P Tubal ligation
Discussed patient care with: Nursing and Care Team
Subjective
-
Date of Service: November 19, 2023
Objective Data
-
Lab Results
11/19/23 04:50
11/19/23 04:50
PT 15.5 Sec (11.4-14.6) H 11/17/23 04:53
INR 1.24 11/17/23 04:53
APTT 32.4 Sec (23.4-35.0) 11/17/23 04:53
Vital Signs
Vital Signs
Temp Pulse Resp BP Pulse Ox
98.6 F 63 18 102/56 96
11/19/23 07:16 11/19/23 04:45 11/19/23 07:16 11/19/23 04:29 11/19/23 07:16
CT Intake/Output/Weight
11/18/23 11/19/23 11/19/23
18:59 06:59 18:59
Intake Total 1792 / 1792
Output Total 4325 / 5525 1200 / 5525
Balance -2533 / -3733 -1200 / -3733
SaO2: 96
Physical Exam
-
General: Awake, Oriented and AOx3
Cardiovascular: Regular rate & rhythm and Murmur (4/6 systolic)
Respiratory: Rhonchi (at right base) and Decreased Breath Sounds
Sternum: Stable
Incision: Clean, Dry, Intact and Dressing Intact
Extremities: Edema +2
Data Reviewed
-
Lab Results: Results Reviewed
Medications: Active Meds Reviewed
Chest X-Ray: Report Reviewed and Image Reviewed
ECG: Report Reviewed and Image Reviewed
[2023-11-19] MEDS: ADVAIR HFA 230/21 MCG INHALER INH (07:48)
--- NOTE | 2023-11-19 08:48 | PTCARENOTE ---
Pt not feeling well, unable to take am meds
[2023-11-19] MEDS: TENORMIN 25 MG PO (09:03)
[2023-11-19] MEDS: KCL 40 MEQ PO ×2 (09:05→12:54)
[2023-11-19] MEDS: PROZAC 20 MG PO (09:05)
[2023-11-19] MEDS: BUMEX IV (09:05)
--- NOTE | 2023-11-19 09:24 | W.PN.CARDCBS ---
Addendum entered and electronically signed by Boaz Shane MD 11/19/23 11:34:
I saw and examined the patient.
The Military Equipment Specialist's note was reviewed and I agree with the note.
Comment:
GEN: No distress, awake, cachectic
HEENT: supple, anicteric, mmm
LUNGS: CTA, no wheezes/rales
CV: Reg, S1/S2, 3/6 syst apex, S3+
ABD: soft, BS+, NT/ND
EXT: No edema
NEURO: Gross non-focal
SKIN: No rash
plan:
RONY with severe mitral regurgitation, moderate aortic regurgitation and moderate to severe tricuspid regurgitation. There is also a collection of possible infection/inflammation/abscess/thrombus in the left atrial appendage area. LVEF is preserved.
Continue broad-spectrum antibiotics. With continued positive blood cultures the tentative plan is to delay surgery until next week. We will hope to clear her cultures before the operating room.
Case discussed with CT surgery. Will need to consider adding IV heparin with left atrial appendage finding.
Continue diuresis.
Original Note:
Today's Communication / Plan
-
RONY today
Impression / Plan
-
PCP: Dr. Coleen Anderson
Cardiology: Dr. Ruff
Heme/Onc: Dr. Jackson
GI: Dr. Mcclendon at [facility]
Impression:
Transferred to for evaluation for mitral valve surgery 11/16/23
Admitted to [facility] with resting SOB symptoms, then new bacteremia and concern for mitral valve endocarditis 11/09/23
Suspected mitral valve endocarditis
Moderate aortic insufficiency
Abiotrophia defectiva bacteremia seen initially at [facility] starting with cultures from 11/11/23
Anemia and thrombocytopenia in the setting of endocarditis
s/p 2 units PRBCs 11/18/23
s/p 2 sets platelets 11/18/23
Elevated Troponin at [facility] managed as a nonischemic myocardial injury Troponin elevation
CAD with smooth 80% ostial RCA lesion by cath 11/18/23
Acute HFpEF
B/L pleural effusions
s/p thoracentesis at [facility] 11/11/23
h/o AVNRT, s/p ablation at 2000
Hemochromatosis
h/o HTN
Hyperlipidemia
Hypokalemia
Elevated TSH with normal free T4
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
least moderate, moderate aortic insufficiency with dilated aorta
Plan:
-Patient was sent to 11/16/23 for evaluation for MV endocarditis. CT surgery has been following the patient and plan is for RONY on 11/19/23 and pending outcome surgery with AVR,MVR and CABG this admission.
-RONY 11/19/23 to better evaluate MR and moderate aortic insufficiency. TTE from [facility] uploaded to system.
-Patient with ostial RCA lesion by cath 11/18/23. Of note patient had an elevated Troponin T at [facility] prior to transfer, level was 92. This was initially managed as a nonischemic myocardial injury Troponin elevation, but perhaps should be managed as a
NSTEMI and consider adding DAPT. Although no chest pain.
-PCWP was 37 by [facility] 11/18/23. Bumex gtt ordered 11/18/23 and then transitioned to Bumex 1 mg IV x1 on 11/19/23. Weight is down 10 lbs as of 11/19/23.
-Talked with patient at length to clarify history from her [facility] chart. She says there is no h/o substance use.
-Anemia previously worked up at [facility] including unremarkable upper, lower and capsule endoscopies in 04/2023. Patient then started to follow with Heme/Onc and had BM biopsy at [facility] 06/2023 that suggested a reactive process and patient has required
outpatient transfusions. Patient was scheduled for a tertiary evaluation at [facility] in February, but now anemia suspected to be secondary to infective endocarditis. Patient has received 2 units of PRBCs and 2 sets of platelets at .
-Hypokalemia managed by CT surgery team and KCl ordered 11/19/23. Check magnesium level, was 1.6 on 11/18/23.
HPI: Patient was transferred from [facility] to 11/16/[address] team in the setting of suspected mitral valve endocarditis. Patient reports that she started with fatigue and INGRAM in 04/2023. Patient was found to be anemic and had GI
work-up including upper and lower endoscopy plus capsule endoscopy that were all unremarkable at [facility]. Patient then saw rheumatology and Heme/Onc for evaluations. Her rheumatoid factor and LICO labs were unremarkable and no definitive rheumatology
diagnosis was made. Patient saw Dr. Jackson with Heme/Onc and eventually had a bone marrow biopsy at [facility] 06/2023 that showed slight erythroid dysmaturation without evidence of clonal process, left shift or blasts. Overall BM biopsy suggested a
reactive process. 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 Patient went to [facility] on 11/09/23 for resting SOB and palpitations. In [facility] ER she was hypotensive
and Hgb was 6.[address] was negative for PE. Cardiology was consulted for elevated Troponin and an echo was checked that revealed flail MV leaflet and ruptured chords. There was consideration for cath and RONY at [facility], but due to
thrombocytopenia cases deferred. Blood cultures drawn 11/11/23 were positive for gram positive cocci in chains and repeat blood cultures were also positive 11/13/23. ID was consulted, but no consult seen in [facility] transfer records. Patient was transferred
to yesterday for evaluation by our CT surgical team and cardiology now consulted to follow along. Patient is adopted and does not know anything of her family medical history. Records at [facility] indicated h/o substance abuse, but patient says there is
no h/o drug use whatsoever.
Progress Note - [place]
Subjective
Date of Service: November 19, 2023
She is less SOB
Objective
Labs:
11/19/23 04:50
Labs
Hgb 9.9 g/dL (12.0-16.0) L 11/19/23 04:50
Hct 28.3 % (37.0-47.0) L 11/19/23 04:50
Plt Count 65 10^3/uL (130-400) L 11/19/23 04:50
PT 15.5 Sec (11.4-14.6) H 11/17/23 04:53
INR 1.24 11/17/23 04:53
APTT 32.4 Sec (23.4-35.0) 11/17/23 04:53
Sodium 134 mmol/L (135-145) L 11/19/23 04:50
Potassium 3.2 mmol/L (3.5-5.1) L 11/19/23 04:50
BUN 19 mg/dl (7-17) H 11/19/23 04:50
Creatinine 0.9 mg/dL (0.6-1.0) 11/19/23 04:50
Glucose 92 mg/dl (70-99) 11/19/23 04:50
Vital Signs and I&O:
Vital Signs
Temp Pulse Resp BP Pulse Ox
98.6 F 63 18 102/56 96
11/19/23 07:16 11/19/23 04:45 11/19/23 07:16 11/19/23 04:29 11/19/23 07:24
Vital Signs
Temp Pulse Resp BP Pulse Ox
98.6 F 63 18 102/56 96
11/19/23 07:16 11/19/23 04:45 11/19/23 07:16 11/19/23 04:29 11/19/23 07:24
Intake & Output
11/17/23 11/18/23 11/19/23 11/20/23
06:59 06:59 06:59 06:59
Intake Total 1646 / 1646 1792 / 1792
Output Total 250 / 250 2650 / 2650 5525 / 5525
Balance -250 / -250 -1004 / -1004 -3733 / -3733
Physical Exam
Physical Exam
GEN: NAD. AAOx3
HEENT: EOMI, MMM
LUNGS: No audible wheeze
CV: SR on tele
ABD: ND
EXT: No edema B/L
NEURO: Gross non-focal
SKIN: No rash
--- NOTE | 2023-11-19 09:33 | PHA.VAN.FU ---
Vancomycin Assessment / Plan
- Assessment
Renal Function: Stable
WBC's are: WNL
In the past 24 hrs, patient has been: Afebrile
Concomitant Antimicrobials: ceftriaxone
- Assessment - Therapeutic Drug Monitoring
Random Level: 18.7 - drawn ~18.5H after previous dose of 750mg
- Dosing Plan
Dosing by Level: Hold off on dosing today (level continues to accumulate despite decreasing dosing, may require prolonged interval)
Dosing Comments: appears patient may not follow population pk
- Monitoring Plan
Random Level: 11/19 0600
- Follow Up
Pharmacy will continue to follow.
Vancomycin Follow UP
- -
Patient Age: 63
Patient Sex: Female
Vancomycin Day #: 9 (continued from outside hospital)
Indication: Endocarditis
Requesting Provider: Nitesh Calderon / Dr. Bell
Pertinent Antimicrobial Allergies:
erythromycin - stomach cramping
Height / Weight:
Height 5 ft 2 in
Actual Weight 47.6 kg
- Vital Signs / Lab Results
Temp Pulse Resp BP Pulse Ox
98.6 F 63 18 102/56 96
11/19/23 07:16 11/19/23 04:45 11/19/23 07:16 11/19/23 04:29 11/19/23 07:24
Lab Results - Hematology
11/17/23 11/18/23 11/18/23
04:53 05:46 18:03
WBC 6.5 7.8 6.9
11/19/23
04:50
WBC 5.8
Lab Results - Chemistry
11/17/23 11/18/23 11/19/23
04:53 05:46 04:50
BUN 13 14 19 H
Creatinine 0.7 0.8 0.9
Estimated Creat Clear 64 56 47
Albumin 2.3 L
Microbiology Results
11/18/23 05:46 Blood Culture - Preliminary
Blood/Venous No Growth in 24 hours- Final report to follow
11/17/23 04:53 Blood Culture - Preliminary
Blood/Venous Positive culture in progress
Gram Stain - Preliminary
Therapeutic Drug Monitoring
Random Vancomycin 18.7 ug/ml 11/19/23 04:50
[2023-11-19] MEDS: BUMEX 1 MG IV (10:59)
--- NOTE | 2023-11-19 11:10 | W.PN.ID1 ---
Date of Service
Date of Service: November 19, 2023
Today's Communication
Add ceftriaxone.
Delay valve surgery for now.
Assessment / Plan
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
# Abiotrophia defectiva (NVS) bacteremia; 11/09 to 11/11 , 4 sets bcx's at [place]
# Acute anemia/thrombocytopenia
- 11/17/23 Blood cx here positive with nutritional variant strep (NVS)
- Organism susceptibility sent out to [facility] still pending
-RONY today result pending
- Add ceftriaxone 2g IV q24h.
- Continue Vancomycin for now
- Continue to repeat blood cultures until clear.
- Discussed with Dr. Waggoner. If able, I prefer to hold valve surgery until blood cultures have cleared.
Dr. Waggoner will move surgery from tomorrow to next Thursday.
#Additional Past Medical History:
Mitral valve prolapse
Hypertension
Hemochromatosis
Dyslipidemia
History of AVNRT status post ablation 2000
IBS
Anxiety/depression
Tubal ligation
History of breast implant subsequently removed
Chief Complaint
-: Other (endocarditis)
Subjective / Review of Systems
Feeling better today.
Vital Signs / Physical Exam
Vital Signs
Vital Signs
Temp Pulse Resp BP Pulse Ox
98.6 F 63 18 102/56 96
11/19/23 07:16 11/19/23 04:45 11/19/23 07:16 11/19/23 04:29 11/19/23 07:24
Physical Exam
Constitutional: No Acute Distress and Comfortable
Cardiovascular: Regular Rate, S1/S2 and Murmur
Pulmonary: Rales
Gastrointestinal: Soft, Non Tender and Non Distended
Extremities: Edema
Neurological: AO x 3
Objective Data
Lab Data
PT 15.5 Sec (11.4-14.6) H 11/17/23 04:53
INR 1.24 11/17/23 04:53
APTT 32.4 Sec (23.4-35.0) 11/17/23 04:53
Estimated Creat Clear 47 ml/min 11/19/23 04:50
Total Bilirubin 1.8 mg/dl (0.2-1.3) H 11/17/23 04:53
AST 42 U/L (14-36) H 11/17/23 04:53
ALT 18 U/L (0-35) 11/17/23 04:53
Alkaline Phosphatase 81 U/L (38-126) 11/17/23 04:53
Most recent labs reviewed.
Micro Results:
11/17/23 04:53 Blood Culture - Preliminary
Blood/Venous Vit B6 Dependent Streptococcu
Gram Stain - Preliminary
11/18/23 05:46 Blood Culture - Preliminary
Blood/Venous No Growth in 24 hours- Final report to follow
11/19/23 04:50 Blood Culture - Pending
Blood/Venous
11/17/23 CXR: Mild to moderate CHF with small bilateral pleural effusions.
Care Review
Plan reviewed with: Physician (Dr. Waggoner)
[2023-11-19 11:33] LABS: Mean Corp Hgb Conc. 34.5 g/dL (33.0-37.0); Mean Corpuscular Hgb 29.6 pg (27.0-31.0); Mean Corpuscular Volume 85.8 fL (81.0-99.0); Mean Platelet Volume 11.3 fL (7.4-10.4); Platelet Count 62 10^3/uL (130-400); Red Blood Cell Count 3.38 10^6/uL (4.20-5.40); Red Cell Dist. Width 15.9 % (11.5-14.5); White Blood Cell Count 5.8 10^3/uL (4.8-10.8)
--- NOTE | 2023-11-19 11:44 | CM ---
Chart reviewed. Patient is independent of ADLS, lives with her in a 2 [address], 1 DASHA, 0 DME. Patient's MVR was changed to 11/24. Plan is for the patient to return home with CT Transitional RN. CM to follow
[2023-11-19 11:47] LABS: APTT 29.7 Sec (23.4-35.0)
[2023-11-19] MEDS: ROCEPHIN 2000 MG IV (12:24)
[2023-11-19] MEDS: STERILE WATER FOR INJECTION 20 ML IV (12:25)
[2023-11-19] MEDS: HEPARIN 25000 UNITS/250 ML IV (13:16)
--- NOTE | 2023-11-19 16:18 | PTCARENOTE ---
Pt had a nose bleed, small amt of blood noted, which has stopped on its own.
--- NOTE | 2023-11-19 17:07 | RESPNOTE ---
Bedside PFT attempted x 2
1st- Patient with nose bleed
2nd- Patient says she is having a coughing fit which is her normal, and that we would 'kill her at this moment if we attempt.'
Mercedes DARBY notified
[2023-11-19 17:27] LABS: Blood Urea Nitrogen 22 mg/dl (7-17); Calcium 8.9 mg/dl (8.4-10.2); Carbon Dioxide 33 mmol/L (22-30); Chloride 94 mmol/L (98-107); Estimated Creatinine Clearance 53 ml/min; Glucose 129 mg/dl (70-99); Magnesium 1.7 mg/dl (1.6-2.3); Potassium 3.8 mmol/L (3.5-5.1); Sodium 134 mmol/L (135-145); eGFR > 60.00
[2023-11-19] MEDS: LIPITOR 40 MG PO (18:25)
[2023-11-19] MEDS: MAGNESIUM OXIDE 500 MG PO (20:02)
[2023-11-19] MEDS: FLEXBUMIN 50 IV (20:06)
[2023-11-19 20:20] LABS: APTT 45.8 Sec (23.4-35.0)
[2023-11-19] MEDS: AFRIN NASAL SPRAY NASAL (21:13)
[2023-11-20] VITALS (7 sets, daily range): BP systolic 89–116; BP diastolic 51–84; BMI 19.5
[2023-11-20] MEDS: TYLENOL PO ×6 (00:51→22:40)
[2023-11-20 01:14] LABS: Haptoglobin <10 mg/dL (30-200)
[2023-11-20] MEDS: FLEXBUMIN 50 IV ×2 (04:11→11:28)
[2023-11-20 04:43] LABS: Hematocrit 26.7 % (37.0-47.0); Mean Corp Hgb Conc. 33.7 g/dL (33.0-37.0); Mean Platelet Volume 10.9 fL (7.4-10.4); Platelet Count 60 10^3/uL (130-400); Red Cell Dist. Width 15.6 % (11.5-14.5)
[2023-11-20 04:52] LABS: APTT 60.4 Sec (23.4-35.0)
[2023-11-20 05:08] LABS: Blood Urea Nitrogen 20 mg/dl (7-17); Calcium 8.6 mg/dl (8.4-10.2); Carbon Dioxide 31 mmol/L (22-30); Chloride 96 mmol/L (98-107); Estimated Creatinine Clearance 48 ml/min; Glucose 96 mg/dl (70-99); Potassium 3.8 mmol/L (3.5-5.1); Sodium 133 mmol/L (135-145); eGFR > 60.00
[2023-11-20 05:13] LABS: Vancomycin Random 10.7 ug/ml
--- NOTE | 2023-11-20 07:23 | W.PN.CT ---
Today's Communication / Plan
-
-on Vanco and Ceftriaxone
-follow blood cultures. Appreciate ID input
-s/p RONY 11/18
-plans for OR on Wed 11/24
Assessment / Plan
-
Assessment:
-MV endocarditis with severe MR (Abiotrophia defectiva bacteremia from blood cultures 11/09- 11/11; negative cultures to date)
-Anemia
-Thrombocytopenia
-LVEF 65%
-Hypertension
-Hemochromatosis
-Dyslipidemia
-History of AVNRT S/P ablation 2000
-GERD
-Osteopenia
-IBS
-Lactose intolerance
-Anxiety/depression
-B/L LE 2+ edema
-B/L pleural effusion S/P L thoracentesis 11/11/23 (cultures negative)
-S/P breast implant with subsequent removal (1998, 2020)
-S/P bone marrow biopsy (unrevealing)
-S/P Tubal ligation
Discussed patient care with: Care Team
Subjective
-
Date of Service: November 20, 2023
Objective Data
-
Lab Results
11/20/23 04:09
11/20/23 04:10
PT 15.5 Sec (11.4-14.6) H 11/17/23 04:53
INR 1.24 11/17/23 04:53
APTT 60.4 Sec (23.4-35.0) H 11/20/23 04:10
Vital Signs
Vital Signs
Temp Pulse Resp BP Pulse Ox
98.6 F 75 18 104/57 96
11/20/23 03:53 11/20/23 07:03 11/20/23 07:03 11/20/23 03:52 11/20/23 07:03
CT Intake/Output/Weight
11/19/23 11/20/23 11/20/23
18:59 06:59 18:59
Output Total 200 / 1350 1150 / 1350
Balance -200 / -1350 -1150 / -1350
SaO2: 96
Physical Exam
-
General: Awake and AOx3
Cardiovascular: Regular rate & rhythm and Murmur (2/6 hsm at b)
Respiratory: Decreased Breath Sounds
Extremities: No Edema
Data Reviewed
-
Lab Results: Results Reviewed
Medications: Active Meds Reviewed
Chest X-Ray: Report Reviewed and Image Reviewed
--- NOTE | 2023-11-20 08:18 | PHA.VAN.FU ---
Vancomycin Assessment / Plan
- Assessment
Renal Function: Stable
WBC's are: WNL
In the past 24 hrs, patient has been: Afebrile
Concomitant Antimicrobials: Ceftriaxone
- Assessment - Therapeutic Drug Monitoring
Random Level: 10.7 - drawn ~23H after previous level of 18.7
Calculated ke: 0.0239
Calculated half life (H): 29
- Dosing Plan
Dosing by Level: Re-dose today (Vanc 750mg)
- Monitoring Plan
Random Level: 11/20 0600
Anticipate patient will not require re-dosing tomorrow but will obtain level with goal to obtain 2 levels to trend half-life
Patient does not appear to follow population PK / estimated CrCl is not predictive of vanc clearance
- Follow Up
Pharmacy will continue to follow.
Vancomycin Follow UP
- -
Patient Age: 63
Patient Sex: Female
Vancomycin Day #: 10 (continued from outside hospital)
Indication: Endocarditis
Requesting Provider: Nitesh Calderon / Dr. Bell
Pertinent Antimicrobial Allergies:
erythromycin - stomach cramping
Height / Weight:
Height 5 ft 2 in
Actual Weight 48.4 kg
- Vital Signs / Lab Results
Temp Pulse Resp BP Pulse Ox
98.6 F 75 18 104/57 96
11/20/23 03:53 11/20/23 07:03 11/20/23 07:03 11/20/23 03:52 11/20/23 07:25
Lab Results - Hematology
11/18/23 11/18/23 11/19/23
05:46 18:03 04:50
WBC 7.8 6.9 5.8
11/19/23 11/20/23
11:23 04:09
WBC 5.8 7.0
Lab Results - Chemistry
11/18/23 11/19/23 11/19/23
05:46 04:50 16:57
BUN 14 19 H 22 H
Creatinine 0.8 0.9 0.8
Estimated Creat Clear 56 47 53
11/20/23
04:10
BUN 20 H
Creatinine 0.9
Estimated Creat Clear 48
Microbiology Results
11/19/23 04:50 Blood Culture - Preliminary
Blood/Venous No Growth in 24 hours- Final report to follow
11/18/23 05:46 Blood Culture - Preliminary
Blood/Venous Positive culture in progress
Gram Stain - Preliminary
11/17/23 04:53 Blood Culture - Preliminary
Blood/Venous Vit B6 Dependent Streptococcu
Gram Stain - Preliminary
Therapeutic Drug Monitoring
Random Vancomycin 10.7 ug/ml 11/20/23 04:10
[2023-11-20] MEDS: VITAMIN C 500 MG PO (08:46)
[2023-11-20] MEDS: TYLENOL 650 MG PO (08:46)
[2023-11-20] MEDS: TENORMIN 25 MG PO (08:46)
[2023-11-20] MEDS: PROZAC 20 MG PO (08:46)
[2023-11-20] MEDS: MAGNESIUM OXIDE 500 MG PO ×2 (08:46→19:47)
[2023-11-20] MEDS: AFRIN NASAL SPRAY NASAL ×2 (08:49→19:48)
--- NOTE | 2023-11-20 08:56 | W.PN.ID1 ---
Date of Service
Date of Service: November 20, 2023
Today's Communication
Continue Vanco/ceftriaxone.
Repeat daily blood cx's until at least 2 sets are clear.
Assessment / Plan
# MV, AV, TV infective endocarditis with acute heart failure
# Sustained Abiotrophia defectiva (NVS) bacteremia; (11/09 to 11/11, 4 sets bcx's at [facility]), 11/16, 11/17 here
# Acute anemia/thrombocytopenia
- 11/16, 11/17 Blood cx's here positive with nutritional variant strep (NVS)
- Organism susceptibility sent out to [facility] still pending
- On IV Vancomycin ( d11)
- Added ceftriaxone 2g IV q24h (d2)
- Continue to repeat blood cultures until clear.
- Cardiac surgery delayed until next Friday 11/24, in hopes of clearance of blood cx's by then.
#Additional Past Medical History:
Mitral valve prolapse
Hypertension
Hemochromatosis
Dyslipidemia
History of AVNRT status post ablation 2000
IBS
Anxiety/depression
Tubal ligation
History of breast implant subsequently removed
Chief Complaint
-: Other (endocarditis)
Subjective / Review of Systems
No new complaints.
Vital Signs / Physical Exam
Vital Signs
Vital Signs
Temp Pulse Resp BP Pulse Ox
98.6 F 74 18 116/62 96
11/20/23 03:53 11/20/23 08:46 11/20/23 07:03 11/20/23 08:46 11/20/23 07:25
Physical Exam
Constitutional: No Acute Distress and Comfortable
Cardiovascular: Regular Rate, S1/S2 and Murmur
Pulmonary: Clear
Gastrointestinal: Soft, Non Tender and Non Distended
Extremities: Edema (BLE 1+)
Neurological: AO x 3
Objective Data
Lab Data
Lab Results
11/20/23 04:09
11/20/23 04:10
PT 15.5 Sec (11.4-14.6) H 11/17/23 04:53
INR 1.24 11/17/23 04:53
APTT 60.4 Sec (23.4-35.0) H 11/20/23 04:10
Estimated Creat Clear 48 ml/min 11/20/23 04:10
Total Bilirubin 1.8 mg/dl (0.2-1.3) H 11/17/23 04:53
AST 42 U/L (14-36) H 11/17/23 04:53
ALT 18 U/L (0-35) 11/17/23 04:53
Alkaline Phosphatase 81 U/L (38-126) 11/17/23 04:53
Most recent labs reviewed.
Micro Results:
11/18/23 05:46 Blood Culture - Preliminary
Blood/Venous Vit B6 Dependent Streptococcu
Gram Stain - Preliminary
11/19/23 04:50 Blood Culture - Preliminary
Blood/Venous No Growth in 24 hours- Final report to follow
11/20/23 04:10 Blood Culture - Pending
Blood/Venous
11/17/23 04:53 Blood Culture - Preliminary
Blood/Venous Vit B6 Dependent Streptococcu
Gram Stain - Preliminary
11/17/23 CXR: Mild to moderate CHF with small bilateral pleural effusions.
[2023-11-20] MEDS: STERILE WATER FOR INJECTION 20 ML IV (10:12)
[2023-11-20] MEDS: ROCEPHIN 2000 MG IV (10:12)
[2023-11-20] MEDS: FLUSH (NSS) 2 FLUSH IV (10:12)
[2023-11-20] MEDS: VANCOCIN 150 IV (10:13)
[2023-11-20] MEDS: HEPARIN 25000 UNITS/250 ML IV (11:27)
--- NOTE | 2023-11-20 11:48 | PTCARENOTE ---
PFT's being completed at bedside.
[2023-11-20] MEDS: VENTOLIN NEBULES 2.5 MG INH (12:14)
--- NOTE | 2023-11-20 12:30 | W.PN.CARDCBS ---
Addendum entered and electronically signed by Andi Ngo MD 11/20/23 17:19:
Patient offers no complaints
PMH/PSH/SH/FH: Reviewed
Allergies: Erythromycin, Ativan, oxycodone and Compazine
Outpatient cardiac meds: Atenolol 25 mg a day, atorvastatin 40 mg a day
Current medications: Atorvastatin 40 mg a day, fluoxetine 20 mg a day, vancomycin, atenolol 25 mg a day, ceftriaxone, IV heparin started yesterday, oxy metolazone, magnesium, iron
ROS negative except as above
90/51, 116/62, pulse 60s, afebrile, 94%, weight is 48.4 kg
Pleasant, frail, head neck exam unremarkable, lungs clear, loud systolic murmur, JVD okay, abdomen benign no obvious edema, neuro intact
Hemoglobin 9, white count 7, platelets 60, stable sodium 133, BUN and creatinine 20 and 0.9, potassium 3.8, chest x-ray from November 16 with small effusions
Impression: See below
Plan:
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
She is on heparin with a platelet count of 60 will need to watch carefully
Continue antibiotics per ID,
Tentatively for surgery mid next week
Original Note:
Today's Communication / Plan
-
Continue IV antibiotics per ID
Continue to follow and trend blood cultures
Continue IV heparin
Monitor and trend hemoglobin
Monitor and trend electrolytes
Impression / Plan
-
PCP: Dr. Coleen Anderson
Cardiology: Dr. Ruff
Heme/Onc: Dr. Jackson
GI: Dr. Mcclendon at [facility]
Impression:
Transferred to for evaluation for mitral valve surgery 11/16/23
Admitted to [facility] with resting SOB symptoms, then new bacteremia and concern for mitral valve endocarditis 11/09/23
Multi valvular endocarditis (involves mitral, tricuspid and aortic valves) associated with significant regurgitation of all 3 valves
Echodensity in left atrial appendage
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
Anemia and thrombocytopenia in the setting of endocarditis
s/p 2 units PRBCs 11/18/23
s/p 2 sets platelets 11/18/23
Elevated Troponin at [facility] managed as a nonischemic myocardial injury Troponin elevation
CAD with smooth 80% ostial RCA lesion by cath 11/18/23
Acute HFpEF
B/L pleural effusions
s/p thoracentesis at [facility] 11/11/23
h/o AVNRT, s/p ablation at 2000
Hemochromatosis
h/o HTN
Hyperlipidemia
Hypokalemia
Elevated TSH with normal free T4
Cardiac catheterization 11/18/2023: LM: Patent. LAD: Luminal irregularities. LCX: Patent. RCA: 80% ostial stenosis with catheter dampening, distal vessels patent
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
least moderate, moderate aortic insufficiency with dilated aorta
RONY 11/19/2023: EF 65%. Moderately dilated left atrium. Mildly dilated right atrium. Left atrial appendage is mildly dilated with large echodensity in lateral wall of mitral valve annulus extending into left atrial appendage. Thickened mitral
valve leaflets with large mobile vegetations on anterior and posterior leaflets with severe MR. Mildly thickened aortic valve leaflets with multiple small predominantly fixed echo densities on all 3 cusp with moderate AI. Thickened tricuspid valve
leaflets with very small mobile echodensities consistent with possible vegetation with moderate TR.
Plan:
-Patient was sent to 11/16/23 for evaluation for MV endocarditis
-CT surgery has been following the patient and plan is for RONY on 11/19/23 and pending outcome surgery with AVR,MVR and CABG this admission.
-RONY 11/19/23 as noted above shows vegetation on mitral, tricuspid and aortic valves as well as large echodensity involving left atrial appendage
-Patient started on IV heparin 11/19/23 given left atrial appendage finding
-Continue broad-spectrum antibiotics - Vanco/ceftriaxone. ID following. With continued positive blood cultures the tentative plan for surgery 11/24. Per ID repeat daily blood cx's until at least 2 sets are clear.
-Patient with ostial RCA lesion by cath 11/18/23. Of note patient had an elevated Troponin T at [facility] prior to transfer, level was 92. This was initially managed as a nonischemic myocardial injury Troponin elevation, but perhaps should be managed as a
NSTEMI. Patient now on IV heparin. Patient denies chest pain.
-PCWP was 37 by RHC 11/18/23. Bumex gtt ordered 11/18/23 and then transitioned to Bumex 1 mg IV x1 on 11/19/23. Weight is down 11 lbs as of 11/20/23. Continue to monitor. If patient should require additional blood would likely need additional diuresis.
-Anemia previously worked up at [facility] including unremarkable upper, lower and capsule endoscopies in 04/2023. Patient then started to follow with Heme/Onc and had BM biopsy at [facility] 06/2023 that suggested a reactive process and patient has required
outpatient transfusions. Patient was scheduled for a tertiary evaluation at [facility] in February, but now anemia suspected to be secondary to infective endocarditis.
-Patient has received 2 units of PRBCs and 2 sets of platelets at .
-Hgb 9.0 currently, low of 6.8 & high of 11.3 following transfusion. Continue to monitor and trend
-Improving hypokalemia with potassium of 3.8. Magnesium 1.7. Continue to monitor and trend
Discussed above plan with patient and her daughter who is at bedside. Spent 25 minutes reviewing findings treatment plans and decisions.
HPI: Patient was transferred from [facility] to 11/16/[address] team in the setting of suspected mitral valve endocarditis. Patient reports that she started with fatigue and INGRAM in 04/2023. Patient was found to be anemic and had GI
work-up including upper and lower endoscopy plus capsule endoscopy that were all unremarkable at [facility]. Patient then saw rheumatology and Heme/Onc for evaluations. Her rheumatoid factor and LICO labs were unremarkable and no definitive rheumatology
diagnosis was made. Patient saw Dr. Jackson with [facility]/Onc and eventually had a bone marrow biopsy at [facility] 06/2023 that showed slight erythroid dysmaturation without evidence of clonal process, left shift or blasts. Overall BM biopsy suggested a
reactive process. [facility] for anemia and was transfused, but referred back to her outpatient orthopedic nurse practitioner for murmur. Patient went to [facility] on 11/09/23 for resting SOB and palpitations. In [facility] ER she was hypotensive
and Hgb was 6.[address] was negative for PE. Cardiology was consulted for elevated Troponin and an echo was checked that revealed flail MV leaflet and ruptured chords. There was consideration for cath and RONY at [facility], but due to
thrombocytopenia cases deferred. Blood cultures drawn 11/11/23 were positive for gram positive cocci in chains and repeat blood cultures were also positive 11/13/23. ID was consulted, but no consult seen in [facility] transfer records. Patient was transferred
to yesterday for evaluation by our CT surgical team and cardiology now consulted to follow along. Patient is adopted and does not know anything of her family medical history. Records at [facility] indicated h/o substance abuse, but patient says there is
no h/o drug use whatsoever.
Progress Note - Automatic Typewriter Inspector
Subjective
Date of Service: November 20, 2023
Patient seen and examined. Patient sitting in bed. Patient's daughter at bedside. Patient reports she feels better today than yesterday. Still requiring oxygen but overall shortness of breath seems to be improving and she has more energy. She
denies chest pain
Objective
Labs:
11/20/23 04:09
11/20/23 04:10
Labs
Hgb 9.0 g/dL (12.0-16.0) L 11/20/23 04:09
Hct 26.7 % (37.0-47.0) L 11/20/23 04:09
Plt Count 60 10^3/uL (130-400) L 11/20/23 04:09
PT 15.5 Sec (11.4-14.6) H 11/17/23 04:53
INR 1.24 11/17/23 04:53
APTT 60.4 Sec (23.4-35.0) H 11/20/23 04:10
Sodium 133 mmol/L (135-145) L 11/20/23 04:10
Potassium 3.8 mmol/L (3.5-5.1) 11/20/23 04:10
BUN 20 mg/dl (7-17) H 11/20/23 04:10
Creatinine 0.9 mg/dL (0.6-1.0) 11/20/23 04:10
Glucose 96 mg/dl (70-99) 11/20/23 04:10
Vital Signs and I&O:
Vital Signs
Temp Pulse Resp BP Pulse Ox
97.5 F 65 18 116/62 96
11/20/23 11:31 11/20/23 11:31 11/20/23 11:31 11/20/23 08:46 11/20/23 11:31
Vital Signs
Temp Pulse Resp BP Pulse Ox
97.5 F 65 18 116/62 96
11/20/23 11:31 11/20/23 11:31 11/20/23 11:31 11/20/23 08:46 11/20/23 11:31
Intake & Output
11/18/23 11/19/23 11/20/23 11/21/23
06:59 06:59 06:59 06:59
Intake Total 1646 / 1646 1792 / 1792 210 / 210
Output Total 2650 / 2650 5525 / 5525 1350 / 1350
Balance -1004 / -1004 -3733 / -3733 -1350 / -1350 210 / 210
Physical Exam
Physical Exam
GEN: No distress, awake, Ox3, sitting in chair
HEENT: supple, anicteric, mmm
LUNGS: Mildly diminished breath sounds CTA, no wheezes/rales, wearing oxygen at 2 L
CV: Reg, S1/S2, 3/6 syst murmur
ABD: soft, BS+, NT/ND
EXT: No edema, clubbing or cyanosis
NEURO: Gross non-focal
SKIN: No rash, warm, dry mildly pallor
[2023-11-20 13:25] LABS: APTT 89.5 Sec (23.4-35.0)
--- NOTE | 2023-11-20 13:42 | CM ---
Chart reviewed. Patient is independent of ADLS, lives with her in a 2 STH, 1 DASHA, 0 DME. Patient is going for an MVR 11/24. Plan is for the patient to return home with CT Transitional RN. CM to follow
[2023-11-20] MEDS: FERRLECIT 110 MG IV (14:00)
[2023-11-20] MEDS: LIPITOR 40 MG PO (17:49)
[2023-11-20 20:19] LABS: APTT 157.8 Sec (23.4-35.0)
[2023-11-21] VITALS (36 sets, daily range): BP systolic 73–137; BP diastolic 59–85; BMI 19.9
--- NOTE | 2023-11-21 00:23 | PTCARENOTE ---
Pt. oriented and ambulatory with minimal assist this shift ( just needs help with IV pole). VSS; NSR on the monitor. Complaining of intermittent light bloody nurse that stops and restarts on its own. Pt. on 2L O2 (RA pulse ox 86%) -
humidification placed (Pulse ox mid 90's with O2). Mery Stockton notified of bleeding and also that PTT high this shift (157.8) - protocol followed and drip held for an hour then restarted at decreased rate of 1200 units/hr. Pt. also had fleeting
nausea following PO magnesium, order for Zofran obtained but then pt. stated it improved and refused med. Pt. currently sleeping.
[2023-11-21 03:31] LABS: Hematocrit 26.3 % (37.0-47.0); Hemoglobin 8.7 g/dL (12.0-16.0); Mean Corp Hgb Conc. 33.1 g/dL (33.0-37.0); Mean Corpuscular Hgb 29.6 pg (27.0-31.0); Mean Corpuscular Volume 89.5 fL (81.0-99.0); Mean Platelet Volume 11.7 fL (7.4-10.4); Platelet Count 60 10^3/uL (130-400); Red Blood Cell Count 2.94 10^6/uL (4.20-5.40); Red Cell Dist. Width 15.4 % (11.5-14.5)
[2023-11-21 03:48] LABS: APTT 96.6 Sec (23.4-35.0)
[2023-11-21 03:49] LABS: Vancomycin Random 13.1 ug/ml
[2023-11-21 04:30] LABS: Blood Urea Nitrogen 22 mg/dl (7-17); Calcium 8.8 mg/dl (8.4-10.2); Carbon Dioxide 29 mmol/L (22-30); Chloride 97 mmol/L (98-107); Estimated Creatinine Clearance 55 ml/min; Glucose 98 mg/dl (70-99); Potassium 3.8 mmol/L (3.5-5.1); Sodium 133 mmol/L (135-145); eGFR > 60.00
[2023-11-21] MEDS: TYLENOL PO (04:41)
--- NOTE | 2023-11-21 06:52 | W.PN.CT ---
Today's Communication / Plan
-
-some minor nosebleed noted by nurse in setting of elevated PTT - tx with humidified O2 - resolved. h/h ok 8.7/26.3, plat stable 60K
-continue iv Heparin (renewed)
-on Vancomycin and Ceftriaxone
-follow blood cxs. Appreciate ID input
-Mucinex for cough
-plans for OR on 11/24
Assessment / Plan
-
Assessment:
-MV endocarditis with severe MR (Abiotrophia defectiva bacteremia from blood cultures 11/09- 11/11; negative cultures to date)
-Anemia
-Thrombocytopenia
-LVEF 65%
-Hypertension
-Hemochromatosis
-Dyslipidemia
-History of AVNRT S/P ablation 2000
-GERD
-Osteopenia
-IBS
-Lactose intolerance
-Anxiety/depression
-B/L LE 2+ edema
-B/L pleural effusion S/P L thoracentesis 11/11/23 (cultures negative)
-S/P breast implant with subsequent removal (1998, 2020)
-S/P bone marrow biopsy (unrevealing)
-S/P Tubal ligation
Discussed patient care with: Nursing and Care Team
Subjective
-
Date of Service: November 21, 2023
Objective Data
-
Lab Results
11/21/23 03:17
11/21/23 03:17
PT 15.5 Sec (11.4-14.6) H 11/17/23 04:53
INR 1.24 11/17/23 04:53
APTT 96.6 Sec (23.4-35.0) H 11/21/23 03:17
Vital Signs
Vital Signs
Temp Pulse Resp BP Pulse Ox
99.0 F 85 20 122/70 96
11/21/23 03:16 11/21/23 03:12 11/21/23 03:16 11/21/23 03:12 11/21/23 03:16
CT Intake/Output/Weight
11/20/23 11/20/23 11/21/23
06:59 18:59 06:59
Intake Total 320 / 320
Output Total 1150 / 1350 1450 / 1450
Balance -1150 / -1350 320 / -1130 -1450 / -1130
SaO2: 96
Physical Exam
-
General: Awake and AOx3
Cardiovascular: Regular rate & rhythm and Murmur
Respiratory: Rhonchi (b/l)
Data Reviewed
-
Lab Results: Results Reviewed
Medications: Active Meds Reviewed
Chest X-Ray: Report Reviewed and Image Reviewed
ECG: Report Reviewed and Image Reviewed
--- NOTE | 2023-11-21 08:14 | PHA.VAN.FU ---
Vancomycin Assessment / Plan
- Assessment
Renal Function: Stable
WBC's are: WNL
In the past 24 hrs, patient has been: Afebrile
Concomitant Antimicrobials: CEFTRIAXONE
- Assessment - Therapeutic Drug Monitoring
Random Level: 13.1
- Dosing Plan
Dosing by Level: Re-dose today
PT'S CRCL NOT PREDICTIVE OF CLEARANCE, USING PAST LEVELS, WITHOUT REDOSING, HER LEVEL WILL FALL TO ~7.5 BY TOMORROW, WILL REDOSE WITH 1GM
- Monitoring Plan
Random Level: 16 IN AM
- Follow Up
Pharmacy will continue to follow.
Vancomycin Follow UP
- -
Patient Age: 63
Patient Sex: Female
Vancomycin Day #: 11 (continued from outside hospital)
Indication: Endocarditis
Requesting Provider: Nitesh Calderon / Dr. Bell
Pertinent Antimicrobial Allergies:
erythromycin - stomach cramping
Height / Weight:
Height 5 ft 2 in
Actual Weight 49.2 kg
- Vital Signs / Lab Results
Temp Pulse Resp BP Pulse Ox
99.0 F 85 20 122/70 96
11/21/23 03:16 11/21/23 03:12 11/21/23 03:16 11/21/23 03:12 11/21/23 06:54
Lab Results - Hematology
11/18/23 11/19/23 11/19/23
18:03 04:50 11:23
WBC 6.9 5.8 5.8
11/20/23 11/21/23
04:09 03:17
WBC 7.0 9.0
Lab Results - Chemistry
11/19/23 11/19/23 11/20/23
04:50 16:57 04:10
BUN 19 H 22 H 20 H
Creatinine 0.9 0.8 0.9
Estimated Creat Clear 47 53 48
11/21/23
03:17
BUN 22 H
Creatinine 0.8
Estimated Creat Clear 55
Microbiology Results
11/19/23 04:50 Blood Culture - Preliminary
Blood/Venous No Growth in 48 hours- Final report to follow
11/20/23 04:10 Blood Culture - Preliminary
Blood/Venous No Growth in 24 hours- Final report to follow
11/18/23 05:46 Blood Culture - Preliminary
Blood/Venous Vit B6 Dependent Streptococcu
Gram Stain - Preliminary
11/17/23 04:53 Blood Culture - Preliminary
Blood/Venous Vit B6 Dependent Streptococcu
Gram Stain - Preliminary
Therapeutic Drug Monitoring
Random Vancomycin 13.1 ug/ml 11/21/23 03:17
[2023-11-21 08:39] LABS: ACT-LR - POC 163 Seconds (116-155)
--- NOTE | 2023-11-21 08:50 | W.PN.UPDATE ---
Update Note
Progress Note Update
TRANSFER NOTE
Isaura Finney is a 63-year-old [id number], female with hypertension, hyperlipidemia, hemochromatosis, mitral prolapse (f/b Dr. Ruff) and AV john reentrant tachycardia who has been admitted to [facility] on
11/09/2023 with acute worsening of exertional dyspnea and fatigue. Patient states symptoms have been present since January 2023 and has been following with outpatient gastroenterology with workup inclusive of colonoscopy in March upper GI in June
of this year and capsule endoscopy in July of this year, with all negative results. Patient denies rectal bleeding, melena, hematochezia. Patient received 1 unit of packed red blood cells on 10/10/23 for hemoglobin of 7.4. Hemoglobin on
admission to [facility] was 6.7 and patient was hypotensive (90/62). Patient received a total of 4 units of packed red blood cells. White blood cell count was normal at 6.3 and patient was afebrile. CTA of chest on 11/08 reported no
evidence for pulmonary emboli. Thrombocytopenia with platelet count of 32,000 was followed up with head CT which was negative for infarct or hemorrhage. Initial troponin of 92 was consistent with demand ischemia. Initial blood cultures grew
gram-positive cocci in chains and patient was started on vancomycin 1.5G intravenous daily. A TTE was performed on 11/09 and reported EF of 65% with severe concentric LVH. Normal RV size and function. Dilated left atrium with myxomatous mitral
valve with posterior mitral valve leaflet prolapse and ruptured chordae of the anterior and posterior mitral valve leaflets. The anterior mitral valve leaflet was flail with reported evidence of vegetation. Moderate mitral regurgitation and aortic
insufficiency was noted. Ascending root measured 3.8 cm, sinotubular junction measured 3.1 cm, and ascending aorta measured 3.73 cm. On 11/10, patient underwent a left thoracentesis for 350 cc of fluid. Patient recounts a 30 pound weight loss since
last fall as she has been feeling poorly and has little appetite. Last dental examination and cleaning was in June 2023.
Subsequently after transfer to , she received a right and left heart cath. RHC reveal RA 16, PA 60/30 (47), wedge 37, LHC revealed that RCA had a 80% ostial lesion. A RONY was preformed showed an LVEF of 65%, large echodensity in the lateral wall
of of the mitral valve annulus. Due to these findings she was started on a heparin gtt. Her surgery was postponed due to blood cultures showing active growth. While trying to optimize her for surgery patient has been getting aggressively diuresed
with IV push Bumex and Bumex infusion. This morning on 11/20, patient was complaining of some numbness in her left arm. Therefore, heparin infusion was discontinued and patient was sent for stat head CT. The head CT revealed and it new acute right
parietal lobe intraparenchymal hemorrhage with moderate surrounding edema and a tiny component of subarachnoid hemorrhage. Due to these findings neurosurgery was consulted and the decision was made to transfer the patient to the [facility] for the rest of her care. Patient was transferred to ICU for the remainder of her care while transfer is pending.
[2023-11-21] MEDS: PROTAMINE 4 MG IV (08:57)
[2023-11-21] MEDS: FLUSH (NSS) 2 FLUSH IV (09:13)
--- NOTE | 2023-11-21 09:19 | W.PN.CARDCBS ---
Today's Communication / Plan
-
Maintain current dose diuretic
Agree with plan to transfer to [facility]
Impression / Plan
-
PCP: Dr. Coleen Anderson
Cardiology: Dr. Ruff
Heme/Onc: Dr. Jackson
GI: Dr. Mcclendon at [facility]
Impression:
Transferred to for evaluation for mitral valve surgery 11/16/23
Admitted to [facility] with resting SOB symptoms, then new bacteremia and concern for mitral valve endocarditis 11/09/23
Multi valvular endocarditis (involves mitral, tricuspid and aortic valves) associated with significant regurgitation of all 3 valves
Abiotrophia defectiva bacteremia (nutritional variant strep) seen initially at [facility] starting with cultures from 11/11/23
Echodensity in left atrial appendage
Anemia and thrombocytopenia in the setting of endocarditis, hemolytic anemia
s/p 2 units PRBCs 11/18/23
s/p 2 sets platelets 11/18/23
Elevated Troponin at [facility] managed as a nonischemic myocardial injury Troponin elevation
CAD with 80% ostial RCA lesion by cath 11/18/23
Acute HFpEF
B/L pleural effusions
s/p thoracentesis at [facility] 11/11/23
h/o AVNRT, s/p ablation at 2000
Hemochromatosis
h/o HTN
Hyperlipidemia
Hypokalemia
Elevated TSH with normal free T4
Cardiac catheterization 11/18/2023: LM: Patent. LAD: Luminal irregularities. LCX: Patent. RCA: 80% ostial stenosis with catheter dampening, distal vessels patent
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
least moderate, moderate aortic insufficiency with dilated aorta
RONY 11/19/2023: EF 65%. Moderately dilated left atrium. Mildly dilated right atrium. Left atrial appendage is mildly dilated with large echodensity in lateral wall of mitral valve annulus extending into left atrial appendage. Thickened mitral
valve leaflets with large mobile vegetations on anterior and posterior leaflets with severe MR. Mildly thickened aortic valve leaflets with multiple small predominantly fixed echo densities on all 3 cusp with moderate AI. Thickened tricuspid valve
leaflets with very small mobile echodensities consistent with possible vegetation with moderate TR.
CT Head 11/21/23: New acute right parietal lobe intraparenchymal hemorrhage with moderate surrounding edema and a tiny component of subarachnoid hemorrhage.
Plan:
She is critically ill
-Initial cardiothoracic surgery plan was for OR on Thursday, November 24 for MVR, AVR, TVR, single-vessel CABG (RCA)
-Patient was placed on heparin given findings of mobile appearing echodensity in the left atrial appendage by transesophageal echocardiogram yesterday.
-This morning with left upper extremity numbness concerning for CVA and CT of the head finds new acute right parietal lobe intraparenchymal hemorrhage
Heparin has been discontinued
Cardiothoracic surgery has discussed with [facility] and plan is to transfer to [facility] today
-Continue broad-spectrum antibiotics - Vanco/ceftriaxone. ID following. With continued positive blood cultures the tentative plan for surgery 11/24. Per ID repeat daily blood cx's until at least 2 sets are clear.
-PCWP was 37 by RHC 11/18/23. Bumex gtt ordered 11/18/23 and then transitioned to Bumex 1 mg IV x1 on 11/19/23.
I/O neg 1100 cc overnight
Weight is down 9 lbs as of 11/21/23. Continue to monitor. If patient should require additional blood would likely need additional diuresis.
-Anemia previously worked up at [facility] including unremarkable upper, lower and capsule endoscopies in 04/2023. Patient then started to follow with Heme/Onc and had BM biopsy at [facility] 06/2023 that suggested a reactive process and patient has required
outpatient transfusions. Patient was scheduled for a tertiary evaluation at [place] in February, but now anemia suspected to be secondary to infective endocarditis.
-Patient has received 2 units of PRBCs and 2 sets of platelets at .
-Hgb 8.7 currently, low of 6.8 & high of 11.3 following transfusion. Continue to monitor and trend\\
Critical care time 46 min
HPI: Patient was transferred from [facility] to 11/16/[address] team in the setting of suspected mitral valve endocarditis. Patient reports that she started with fatigue and INGRAM in 04/2023. Patient was found to be anemic and had GI
work-up including upper and lower endoscopy plus capsule endoscopy that were all unremarkable at [facility]. Patient then saw rheumatology and Heme/Onc for evaluations. Her rheumatoid factor and LICO labs were unremarkable and no definitive rheumatology
diagnosis was made. Patient saw Dr. Jackson with Heme/Onc and eventually had a bone marrow biopsy at [facility] 06/2023 that showed slight erythroid dysmaturation without evidence of clonal process, left shift or blasts. Overall BM biopsy suggested a
reactive process. [facility] was then [facility] for anemia and was transfused, but referred back to her outpatient marketing manager for murmur. Patient went to [facility] on 11/09/23 for resting SOB and palpitations. In [facility] ER she was hypotensive
and Hgb was 6.[address] was negative for PE. Cardiology was consulted for elevated Troponin and an echo was checked that revealed flail MV leaflet and ruptured chords. There was consideration for cath and RONY at [facility], but due to
thrombocytopenia cases deferred. Blood cultures drawn 11/11/23 were positive for gram positive cocci in chains and repeat blood cultures were also positive 11/13/23. ID was consulted, but no consult seen in [facility] transfer records. Patient was transferred
to yesterday for evaluation by our CT surgical team and cardiology now consulted to follow along. Patient is adopted and does not know anything of her family medical history. Records at [facility] indicated h/o substance abuse, but patient says there is
no h/o drug use whatsoever.
Progress Note - Aemt
Subjective
Date of Service: November 21, 2023
Left lower arm numbness. No chest pain. Stable shortness of breath.
Objective
Labs:
11/21/23 03:17
11/21/23 03:17
Labs
Hgb 8.7 g/dL (12.0-16.0) L 11/21/23 03:17
Hct 26.3 % (37.0-47.0) L 11/21/23 03:17
Plt Count 60 10^3/uL (130-400) L 11/21/23 03:17
PT 15.5 Sec (11.4-14.6) H 11/17/23 04:53
INR 1.24 11/17/23 04:53
APTT 96.6 Sec (23.4-35.0) H 11/21/23 03:17
Sodium 133 mmol/L (135-145) L 11/21/23 03:17
Potassium 3.8 mmol/L (3.5-5.1) 11/21/23 03:17
BUN 22 mg/dl (7-17) H 11/21/23 03:17
Creatinine 0.8 mg/dL (0.6-1.0) 11/21/23 03:17
Glucose 98 mg/dl (70-99) 11/21/23 03:17
Vital Signs and I&O:
Vital Signs
Temp Pulse Resp BP Pulse Ox
98.2 F 87 16 122/70 97
11/21/23 09:09 11/21/23 09:09 11/21/23 09:09 11/21/23 09:09 11/21/23 07:32
Vital Signs
Temp Pulse Resp BP Pulse Ox
98.2 F 87 16 122/70 97
11/21/23 09:09 11/21/23 09:09 11/21/23 09:09 11/21/23 09:09 11/21/23 07:32
Intake & Output
11/19/23 11/20/23 11/21/23 11/22/23
06:59 06:59 06:59 06:59
Intake Total 1792 / 1792 320 / 320
Output Total 5525 / 5525 1350 / 1350 1450 / 1450
Balance -3733 / -3733 -1350 / -1350 -1130 / -1130
Physical Exam
Physical Exam
Elderly woman sitting up in in bed. Does not appear to be in acute distress
Heart is regular normal S1 and S2 there is a grade 2/6 apical holosystolic murmur and a 2/6 basal diastolic murmur.
Lungs are clear to auscultation bilaterally
Extremities with trace pretibial
She has mild numbness at the left hand.
--- NOTE | 2023-11-21 09:49 | PTCARENOTE ---
at 0748 BP 73/59,patient sitting in chair eating breakfast,entered room and patient c/o being dizzy and has nose bleed. elevated patients legs and put head back in recliner and retook BP 124/74.at that time patient c/o left hand numbness,patient
stated, 'I feel like my hand doesn't belong to me', contacted Mercedes Richards [facility], IV heparin drip stopped, Neuro check completed by CV[facility], sent immediately for CT scan. CT scan confirmed brain bleed. ACT obtained 163. protamine and platelets given as
ordered. Dr. Waggoner in to see patient. report given to David TANG in ICU.patient transferred to ICU room 3360. personal belongings packed and sent with patient.
--- NOTE | 2023-11-21 09:59 | PTCARENOTE ---
Pt transferred to 3360 from IVU s/p finding of R parietal brain bleed. This morning while eating breakfast developed L hand numbness/ataxia. Also having L nare epistaxis. Was on heparin infusion which was stopped prior to transfer. Given
protamine infusion. Pt AOx3, pleasant, anxious. NSR in 80s. SPO2 94% on 2L. BP 118/84. Plan is to transfer to [place] when bed available.
[2023-11-21] MEDS: AFRIN NASAL SPRAY 2 SPRAYS NASAL (10:39)
[2023-11-21] MEDS: ROCEPHIN 2000 MG IV (10:40)
[2023-11-21] MEDS: STERILE WATER FOR INJECTION 20 ML IV (10:40)
[2023-11-21] MEDS: TENORMIN PO (11:02)
[2023-11-21] MEDS: VITAMIN C PO ×2 (11:13→11:18)
[2023-11-21] MEDS: VANCOCIN 200 IV (11:13)
[2023-11-21] MEDS: MAGNESIUM OXIDE PO ×2 (11:13→11:18)
[2023-11-21] MEDS: PROZAC 20 MG PO (11:16)
--- NOTE | 2023-11-21 11:41 | W.PN.ID1 ---
Date of Service
Date of Service: November 21, 2023
Today's Communication
Continue abx.
Assessment / Plan
# MV, AV, TV infective endocarditis with acute heart failure
# Sustained Abiotrophia defectiva (NVS) bacteremia; (11/09 to 11/11, 4 sets bcx's at [facility] [place]), 11/16 - 11/18 here
# Acute anemia/thrombocytopenia
# Acute hemorrhagic CVA
- 11/16, 11/17 Blood cx's here positive with nutritional variant strep (NVS)
- Organism susceptibility sent out to [facility] still pending
- On IV Vancomycin ( d#12)
- Ceftriaxone 2g IV q24h (d#3). Increase to 2 gm IV q12 for MAT CLEANING MACHINE OPERATOR penetration in case the has been embolic disease.
- Continue to repeat blood cultures until clear.
- Given acute CVA, patient for transfer to [facility]; currently awaiting bed.
#Additional Past Medical History:
Mitral valve prolapse
Hypertension
Hemochromatosis
Dyslipidemia
History of AVNRT status post ablation 2000
IBS
Anxiety/depression
Tubal ligation
History of breast implant subsequently removed
Chief Complaint
-: Other (endocarditis)
Subjective / Review of Systems
Pt seen /examined. Chart reviewed. Patient with neurological symptomatology earlier this morning, and CT imaging has revealed a hemorrhagic event.
Currently denies pain.
Vital Signs / Physical Exam
Vital Signs
Vital Signs
Temp Pulse Resp BP Pulse Ox
98.2 F 88 21 118/84 93
11/21/23 09:09 11/21/23 10:00 11/21/23 10:00 11/21/23 10:00 11/21/23 09:53
Physical Exam
Constitutional: No Acute Distress, Comfortable and Non-toxic
Pulmonary: Clear and Non Labored
Gastrointestinal: Non Distended
Extremities: Edema (BLE 1+)
Neurological: AO x 3
Psychological: Calm
Objective Data
Lab Data
Lab Results
11/21/23 03:17
11/21/23 03:17
PT 15.5 Sec (11.4-14.6) H 11/17/23 04:53
INR 1.24 11/17/23 04:53
APTT 96.6 Sec (23.4-35.0) H 11/21/23 03:17
Estimated Creat Clear 55 ml/min 11/21/23 03:17
Total Bilirubin 1.8 mg/dl (0.2-1.3) H 11/17/23 04:53
AST 42 U/L (14-36) H 11/17/23 04:53
ALT 18 U/L (0-35) 11/17/23 04:53
Alkaline Phosphatase 81 U/L (38-126) 11/17/23 04:53
Most recent labs reviewed.
Micro Results:
11/19/23 04:50 Blood Culture - Preliminary
Blood/Venous Positive culture in progress
Gram Stain - Preliminary
11/20/23 04:10 Blood Culture - Preliminary
Blood/Venous No Growth in 24 hours- Final report to follow
11/21/23 03:17 Blood Culture - Pending
Blood/Venous
11/18/23 05:46 Blood Culture - Preliminary
Blood/Venous Vit B6 Dependent Streptococcu
Gram Stain - Preliminary
11/17/23 04:53 Blood Culture - Preliminary
Blood/Venous Vit B6 Dependent Streptococcu
Gram Stain - Preliminary
11/17/23 CXR: Mild to moderate CHF with small bilateral pleural effusions.
--- NOTE | 2023-11-21 12:17 | W.DCSUMMARY ---
Discharge Summary
Discharge Data
Date of Admission: 11/16/23
Date of Discharge: 11/21/23
Total time spent discharging patient (in min): 40
-
Pending Results: Yes
Hospital Course
Primary care physician:
N/A
Outpatient laminating machine tender:
Elzbieta
Inpatient consultants:
DCA, hematology, anesthesia, infectious disease
Primary Diagnosis:
1. Multi-valve endocarditis
Secondary Diagnoses:
1. Coronary artery disease
2. hypertension
3. hyperlipemia
4. hematochromatosis
5. AV node recurrent tachycardia
6. Mitral prolapse
HPI: Isaura Finney is a 63-year-old [id number], female with hypertension, hyperlipidemia, hemochromatosis, mitral prolapse (f/b Dr. Ruff) and AV john reentrant tachycardia who has been admitted to [facility] on
11/09/2023 with acute worsening of exertional dyspnea and fatigue. Patient states symptoms have been present since January 2023 and has been following with outpatient gastroenterology with workup inclusive of colonoscopy in March upper GI in June
of this year and capsule endoscopy in July of this year, with all negative results. Patient denies rectal bleeding, melena, hematochezia. Patient received 1 unit of packed red blood cells on 10/10/23 for hemoglobin of 7.4. Hemoglobin on
admission to [facility] was 6.7 and patient was hypotensive (90/62). Patient received a total of 4 units of packed red blood cells. White blood cell count was normal at 6.3 and patient was afebrile. CTA of chest on 11/08 reported no
evidence for pulmonary emboli. Thrombocytopenia with platelet count of 32,000 was followed up with head CT which was negative for infarct or hemorrhage. Initial troponin of 92 was consistent with demand ischemia. Initial blood cultures grew
gram-positive cocci in chains and patient was started on vancomycin 1.5G intravenous daily. A TTE was performed on 11/09 and reported EF of 65% with severe concentric LVH. Normal RV size and function. Dilated left atrium with myxomatous mitral
valve with posterior mitral valve leaflet prolapse and ruptured chordae of the anterior and posterior mitral valve leaflets. The anterior mitral valve leaflet was flail with reported evidence of vegetation. Moderate mitral regurgitation and aortic
insufficiency was noted. Ascending root measured 3.8 cm, sinotubular junction measured 3.1 cm, and ascending aorta measured 3.73 cm. On 11/10, patient underwent a left thoracentesis for 350 cc of fluid. Patient recounts a 30 pound weight loss since
last fall as she has been feeling poorly and has little appetite. Last dental examination and cleaning was in June 2023. Patient currently sitting in bed, comfortable and able to converse without dyspnea. Of note, patient did not receive
vancomycin dose on 11/15 due to random Vanco level of 28.4.
Hospital course:
Subsequently after transfer to , she received a right and left heart cath. RHC reveal RA 16, PA 60/30 (47), wedge 37, LHC revealed that RCA had a 80% ostial lesion. A RONY was preformed showed an LVEF of 65%, large echodensity in the lateral wall
of of the mitral valve annulus. Due to these findings she was started on a heparin gtt. Her surgery was postponed due to blood cultures showing active growth. While trying to optimize her for surgery patient has been getting aggressively diuresed
with IV push Bumex and Bumex infusion. This morning on 11/20, patient was complaining of some numbness in her left arm. Therefore, heparin infusion was discontinued and patient was sent for stat head CT. The head CT revealed and it new acute right
parietal lobe intraparenchymal hemorrhage with moderate surrounding edema and a tiny component of subarachnoid hemorrhage. Due to these findings neurosurgery was consulted and the decision was made to transfer the patient to the [facility] for the rest of her care. Patient was transferred to ICU for the remainder of her care while transfer is pending. ID adjusted antibiotics regimen
Discharge Plan
-
Patient Disposition: Acute Care Hospital
Condition: Serious
Discharge Orders:
Discharge Patient (As Directed); Ordered 11/21/23
Ordered By: Mercedes Richards
Discharge Date and Time
Print Language: GREEK
--- NOTE | 2023-11-21 13:28 | PTCARENOTE ---
Addendum entered by David Patricio RN 11/21/23 13:30:
Epistaxis of L nare resolved s/p afrin. Oxygen via NC set up to humidifier.
Original Note:
Report given to Tova at [facility] ([id number]). Bed search still in progress. Pt status unchanged - still having numbness/ataxia of L hand. Otherwise no complaints. VSS.
[2023-11-21] MEDS: FERRLECIT IV (15:44)
== END 2023-11-21 17:15 | disposition short-term general hospital (02) | DRG 286 ==
LOC: ICU 16:47
PROVIDERS: Clinical Nurse Specialist Acute Care; Internal Medicine Cardiovascular Disease; Internal Medicine Interventional Cardiology; Nurse Practitioner; ADMITTING PHYSICIAN Thoracic Surgery (Cardiothoracic Vascular Surgery); CONSULT PHYSICIAN Internal Medicine Cardiovascular Disease; CONSULT PHYSICIAN Internal Medicine Hematology & Oncology; CONSULT PHYSICIAN Internal Medicine Infectious Disease; FAMILY PHYSICIAN Nurse Practitioner Family
PROC: 4A023N8 Measurement of Cardiac Sampling and Pressure, Bilateral, Percutaneous Approach (ICD-10-PCS; 2023-11-18)
PROC: 30233R1 Transfusion of Nonautologous Platelets into Peripheral Vein, Percutaneous Approach (ICD-10-PCS; 2023-11-18)
PROC: B2111ZZ Fluoroscopy of Multiple Coronary Arteries using Low Osmolar Contrast (ICD-10-PCS; 2023-11-18)
PROC: 30233N1 Transfusion of Nonautologous Red Blood Cells into Peripheral Vein, Percutaneous Approach (ICD-10-PCS; 2023-11-18)
PROC: B24BZZ4 Ultrasonography of Heart with Aorta, Transesophageal (ICD-10-PCS; 2023-11-19)
DX: I33.0 Acute and subacute infective endocarditis (principal); G93.6 Cerebral edema; I60.9 Nontraumatic subarachnoid hemorrhage, unspecified; I61.1 Nontraumatic intracerebral hemorrhage in hemisphere, cortical; I50.31 Acute diastolic (congestive) heart failure; I47.19 Other supraventricular tachycardia; R78.81 Bacteremia; Z68.1 Body mass index [BMI] 19.9 or less, adult; D58.9 Hereditary hemolytic anemia, unspecified; I5A Non-ischemic myocardial injury (non-traumatic); I08.3 Combined rheumatic disorders of mitral, aortic and tricuspid valves; I25.10 Atherosclerotic heart disease of native coronary artery without angina pectoris; E78.00 Pure hypercholesterolemia, unspecified; E83.119 Hemochromatosis, unspecified; D69.59 Other secondary thrombocytopenia; F41.9 Anxiety disorder, unspecified; K21.9 Gastro-esophageal reflux disease without esophagitis; B96.89 Other specified bacterial agents as the cause of diseases classified elsewhere; F32.A Depression, unspecified; J45.909 Unspecified asthma, uncomplicated; R63.4 Abnormal weight loss; I11.0 Hypertensive heart disease with heart failure; E87.6 Hypokalemia; R04.0 Epistaxis; R79.1 Abnormal coagulation profile; M85.80 Other specified disorders of bone density and structure, unspecified site; E73.9 Lactose intolerance, unspecified; K58.9 Irritable bowel syndrome, unspecified
CPT/HCPCS: 70355; 70450; 71045; 71046; 80048; 80053; 80202; 81003; 81015; 83010; 83036; 83615; 83735; 83880; 84436; 84443; 84481; 85025; 85027; 85045; 85610; 85730; 86803; 86850; 86900; 86901; 86920; 87040; 87205; 93005; 93312; 93320; 93325; 93460; 93880; 94060; 94640; C1769; C1894; J2916; P9016; P9047; P9073; Q9967